=== PATIENT | male | born 1955 | race African-American/Black ===

== ENCOUNTER 2016-10-29 08:43 | Emergency (ER) | payer MEDICAID ==
[2016-10-29 08:47] VITALS: BP 154/79; BMI 28.8
[2016-10-29] MEDS ORDERED: DUONEB 0.5 MG/3 MG NEB ONE (09:10)
[2016-10-29] MEDS ORDERED: DUONEB 0.5 MG/3 MG ONE (09:13)
--- NOTE | 2016-10-29 09:14 | DR.GENAD ---
HPI - PCP Primary Care Physician: CHATO - Complaint/Symptoms Chief Complaint Doctors Comments: Patient reports that he has chest congestion, cough, chills, sweating at night and not feeling well. He denies alochol. cigarettes,vomiting or diarrhea. Symptoms for two th three days duration. Chief Complaint:: PT. C/O CHEST CONGESTION, CHILLS, SWEATS, SORE THROAT. PT. STATES "I THINK I GOT THE FLU." - Source History Provided: Patient - Mode of Arrival Mode of Arrival: Ambulatory - Timing Onset of Chief Complaint: 10/25/16 PMH - PMH Past Medical History: Yes Past Medical History: Hypertension Past Surgical History: No Surgical History: No History - Family History History of Family Medical Conditions: Yes Family Medical History: Diabetes Mellitus, Coronary Artery Disease, Hypertension - Social History Does patient currently use any type of tobacco product: No Have you used tobacco products in the last 12 months: No Type of Tobacco Use: None Does any household member use tobacco: No Alcohol Use: None Do you use any recreational Drugs:: Yes (MARIJUANA) Lives With: Alone Lives Where: Home - infectious screening In the last 2 months have you had wt loss of >10#?: NO Have you had fever, night sweats or hemotysis?: No Have you traveled outside the country in the last 6 months?: No Isolation: Standard ROS - Review of Systems Constitutional: No Symptoms Reported Eyes: No Symptoms Reported ENTM: No Symptoms Reported Respiratoy: Non-Productive Cough, Dry Cough Cardiovascular: No Symptoms Reported Gastrointestinal/Abdominal: No Symptoms Reported Genitourinary: No Symptoms Reported Neurological: No Symptoms Reported Musculoskeletal: No Symptoms Reported Integumentary: No Symptoms Reported Hematologic/Lymphatic: No Symptoms Reported Endocrine: No Symptoms Reported Psychiatric: No Symptoms Reported All Other Systems: Reviewed and Negative PE - Vital Signs Vitals: Temperature 98.7 F Pulse Rate 88 Respiratory Rate 17 Blood Pressure 154/79 O2 Sat by Pulse Oximetry 96 - General Limitations: No Limitations General Appearance: Alert, In No Apparent Distress - Head Head Exam: Normal Inspection, Atraumatic - Eyes Eye exam: Normal Appearance, PERRL, EOMI - ENT ENT Exam: Normal Exam, Normal Oropharynx External Ear Exam: Normal External Inspection TM/Canal Exam: Bilateral Normal Nose Exam: Normal Nose Exam Mouth Exam: Normal Inspection Throat Exam: Normal Inspection - Neck Neck Exam: Normal Inspection, Full ROM - Chest Chest Inspection: Normal Inspection - Respiratory Respiratory Exam: Normal Lung Sounds Bilat Respiratory Exam: Bilateral Clear to Auscultation - Cardiovascular Cardiovascular Exam: Regular Rate, Normal Rhythm - Abdominal Exam Abdominal Exam: Normal Inspection Abdominal Tenderness: negative: RUQ, RLQ, LUQ, LLQ, Epigastrium, Suprapubic, Diffuse, Mild, Moderate, Severe, Other - Extremities Extremities Exam: Normal Inspection, Full ROM - Back Back Exam: Normal Inspection, Full ROM - Neurologic Neurological Exam: Alert, Oriented X3, CN II-XII Intact - Skin Skin Exam: Warm, Dry, Intact Course - Reevaluation 1st: Improved ROR - Labs Reviewed Laboratory Results Reviewed?: Yes (low potassium, strep negative) Result Diagrams: 10/29/16 09:28 10/29/16 09: Laboratory: WBC 3.7 X10^3/uL (3.6-10.0) 10/29/16 09: RBC 5.14 X10^6/uL (4.7-6.0) 10/29/16 09: Hgb 15.4 g/dL (13.5-18.0) 10/29/16 09: Hct 46.5 % (42.0-54.0) 10/29/16 09: MCV 90.5 fL (80.0-100.0) 10/29/16 09: MCH 30.0 pg (27.0-34.0) 10/29/16 09: MCHC 33.2 g/dL (33.0-35.0) 10/29/16 09: RDW 15.2 % (11.6-16.5) 10/29/16 09: Plt Count 175 X10^3/uL (150.0-450.0) 10/29/16 09: Plt Count Comment Adequate (ADEQUATE) 10/29/16: MPV 8.2 fL (7.4-11.0) 10/29/16: Neut % 44.8 % (42.0-75.0) 10/29/16 09: Lymph % 33.0 % (21.0-51.0) 10/29/16 09: [place] % 21.4 % (0.0-13.0) H 10/29/16 09: Eos % 0.0 % (0.9-2.9) L 10/29/16 09:28 Baso % 0.8 % (0.2-1.0) 10/29/16 09: Neut # 1.6 x10^3/uL (2.2-4.8) L 10/29/16 09:28 Lymph # 1.2 X10^3/uL (1.3-2.9) L 10/29/16 09:28 [place] # 0.8 x10^3/uL (0.3-0.8) 10/29/16 09: Eos # 0.0 x10^3/uL (0.0-0.2) 10/29/16 09: Baso # 0.0 X10^3/uL (0.0-0.1) 10/29/16 09:28 Absolute Nucleated RBC 0.1 /100WBC 10/29/16 09: Total Counted 100 10/29/16 09:28 Neutrophils % (Manual) 41 % (39-76) 10/29/16 09:28 Lymphocytes % (Manual) 41 % (13-43) 10/29/16 09:28 Monocytes % (Manual) 18 % (4-9) H 10/29/16 09:28 Plt Morphology Comment Normal (NORMAL) 10/29/16 09: RBC Morphology Normal (NORMAL) 10/29/16 09:28 Sodium 143 mmol/L (136-145) 10/29/16 09:28 Corrected Sodium 144 mmol/L (136-145) 10/29/16 09:28 Potassium 3.2 mmol/L (3.5-5.1) L 10/29/16 09:28 Chloride 106 mmol/L (98-107) 10/29/16 09:28 Carbon Dioxide 23.9 mmol/L (21-32) 10/29/16 09:28 BUN 10 mg/dL (7-18) 10/29/16 09:28 Creatinine 1.20 mg/dL (0.70-1.30) 10/29/16 09:28 Est GFR (MDRD) Af Amer > 60 (>60) 10/29/16 09:28 Est GFR (MDRD) Non-Af > 60 (>60) 10/29/16 09:28 Glucose 124 mg/dL (65-99) H 10/29/16 09:28 Calcium 8.7 mg/dL (8.5-10.1) 10/29/16 09:28 Streptococcus Screen Negative (NEGATIVE) 10/29/16 09:24 - XRAY XRAY Interpreted by: Radiologist (Chest: no cardiopulmonary disease) - Diagnosis Discharge Problem: Hypokalemia Reactive airway disease Qualifiers: Asthma severity: mild intermittent Asthma complication type: uncomplicated Qualified Code(s): J45.20 - Mild intermittent asthma, uncomplicated - Discharge Plan Condition: Stable - Follow ups/Referrals Follow ups/Referrals: Karlee REIS [Primary Care Provider] - 3 days - Instructions
[2016-10-29 09:34] LABS: BASOPHILS % (AUTO) 0.8 % (0.2-1.0); HEMATOCRIT 46.5 % (42.0-54.0); HEMOGLOBIN 15.4 g/dL (13.5-18.0); LYMPHOCYTES # (AUTO) 1.2 X10^3/uL (1.3-2.9); MEAN CORPUSCULAR HGB CONC 33.2 g/dL (33.0-35.0); MEAN CORPUSCULAR VOLUME 90.5 fL (80.0-100.0); MEAN PLATELET VOLUME 8.2 fL (7.4-11.0); MONOCYTES # (AUTO) 0.8 x10^3/uL (0.3-0.8); MONOCYTES % (AUTO) 21.4 % (0.0-13.0); NEUTROPHILS # (AUTO) 1.6 x10^3/uL (2.2-4.8); NEUTROPHILS % (AUTO) 44.8 % (42.0-75.0); PLATELET COUNT 175 X10^3/uL (150.0-450.0); RED BLOOD COUNT 5.14 X10^6/uL (4.7-6.0); RED CELL DISTRIBUTION WIDTH 15.2 % (11.6-16.5); WHITE BLOOD COUNT 3.7 X10^3/uL (3.6-10.0)
[2016-10-29 09:39] LABS: BLOOD UREA NITROGEN 10 mg/dL (7-18); CALCIUM 8.7 mg/dL (8.5-10.1); CARBON DIOXIDE 23.9 mmol/L (21-32); CHLORIDE 106 mmol/L (98-107); COR NA(FOR HYPERGLY) 144 mmol/L (136-145); GLUCOSE 124 mg/dL (65-99); SODIUM 143 mmol/L (136-145); eGFR BLACK RACES > 60 (>60); eGFR NON BLACK RACES > 60 (>60)
--- NOTE | 2016-10-29 09:50 | RAD ---
HISTORY: Cough, wheeze, symptoms for 3 days. Study: Two-view chest. Comparison: No priors Findings: Trachea is midline. The heart size is normal. There is atherosclerotic calcification and uncoiling o f the aortic arch. There is mild hyperinflation of the lungs without infiltrate, CHF, pleural fluid or pneumothorax. Osseous structures are intact. IMPRESSION: Mild hyperinflation of the lungs without acute abnormality. Reported By:
[2016-10-29] MEDS ORDERED: K-DUR TAB 20 MEQ PO ONE ×2 (09:53→10:03)
[2016-10-29 10:01] LABS: PLATELET MORPHOLOGY COMMENT NORMAL (NORMAL)
== END 2016-10-29 10:12 | disposition home or self-care (01) ==
LOC: ER 08:49
DX: E87.6 Hypokalemia (principal); J45.20 Mild intermittent asthma, uncomplicated; J11.1 Influenza due to unidentified influenza virus with other respiratory manifestations
CPT/HCPCS: 36415; 71020; 80048; 85025; 87070; 87205; 87502; 87503; 87880; 94640; 99282; 99283; J7620

== ENCOUNTER 2017-07-11 10:52 | Emergency (ER) | payer MEDICAID ==
[2017-07-11 11:03] VITALS: BMI 30.2
[2017-07-11 11:19] VITALS: BP 161/74
--- NOTE | 2017-07-11 11:36 | DR.GENAD ---
HPI - PCP Primary Care Physician: CHATO Louise HPI Comment HPI Comment: HISTORY BELOW. - Complaint/Symptoms Chief Complaint Doctors Comments: NUMBNESS LT FAACE, LT ARM AND LT FACE AT HOME. BOTH ARMS NUMB YESTERDAY. SYMTOM HAVE RESOLVE. FELL AND INJURED NECK YESTERDAY. ALSO HAVE NEUROPATHY. NECK IS HURTING. Chief Complaint:: FEELING NUMB ON LEFT SIDE ARM AREA, FACE AND CHESRT. I FEEL BETTER NOW BUT IT WAS REAL BAD AT HOME. Self Treatment fo Chief Complaint: TOOK MY BLOOD PRESSURE MEDS - Nurses notes reviewed Nurses Notes Review: Yes - Source History Provided: Patient - Mode of Arrival Mode of Arrival: Ambulatory - Timing Onset of Chief Complaint: 07/10/17 Came on: Suddenly - Duration Duration: Since Onset Duration: Hours - Severity Severity: Moderate PMH - PMH Past Medical History: Yes Past Medical History: Hypertension Past Surgical History: No Surgical History: No History - Family History History of Family Medical Conditions: Yes Family Medical History: Diabetes Mellitus, Coronary Artery Disease, Hypertension - Social History Does any household member use tobacco: No Alcohol Use: None Do you use any recreational Drugs:: No Lives With: Alone Lives Where: Home - infectious screening In the last 2 months have you had wt loss of >10#?: NO Have you had fever, night sweats or hemotysis?: No Have you traveled outside the country in the last 6 months?: No Isolation: Standard ROS - Review of Systems Constitutional: No Symptoms Reported Eyes: No Symptoms Reported ENTM: No Symptoms Reported Respiratoy: No Symptoms Reported Cardiovascular: No Symptoms Reported Gastrointestinal/Abdominal: No Symptoms Reported Genitourinary: No Symptoms Reported Neurological: Numbness, Paresthesia, Weakness Musculoskeletal: No Symptoms Reported Integumentary: No Symptoms Reported Hematologic/Lymphatic: No Symptoms Reported All Other Systems: Reviewed and Negative PE - Vital Signs Vitals: Temperature 97.9 F Pulse Rate [Right Brachial] 78 Pulse Rate 97 Respiratory Rate 18 Blood Pressure [Right Arm] 161/74 Blood Pressure 195/96 O2 Sat by Pulse Oximetry 98 - General Limitations: No Limitations General Appearance: Alert - Head Head Exam: Normal Inspection - Eyes Eye exam: Normal Appearance - ENT ENT Exam: Normal External Ear Exam External Ear Exam: Normal External Inspection TM/Canal Exam: Bilateral Normal Nose Exam: Normal Nose Exam Mouth Exam: Normal Inspection Throat Exam: Normal Inspection - Neck Neck Exam: Trachea Midline - Chest Chest Inspection: Symmetric Chest Wall Rise - Respiratory Respiratory Exam: Normal Lung Sounds Bilat Respiratory Exam: Bilateral Clear to Auscultation - Cardiovascular Cardiovascular Exam: Regular Rate, Normal Rhythm, Normal Heart Sounds - Abdominal Exam Abdominal Exam: Normal Bowel Sounds, Soft. negative: Tenderness - Extremities Extremities Exam: Normal Inspection - Back Back Exam: Normal Inspection - Neurologic Neurological Exam: Alert, Oriented X3 - Psychiatric Psychiatric Exam: Anxious - Skin Skin Exam: Normal Color MDM - Additional Information Additional Information Obtained From: Family - Differential Diagnosis Differential Diagnosis: NUMBNESS/ PARESTHESIA, NEUROPATHY, CVA Course - Treatment Treatment: SEE ORDERS. - Education/Counseling Education/Counseling: Patient, Family, Education Educated On: Diagnosis, Needs for Follow Up ROR - Labs Reviewed Laboratory Results Reviewed?: Yes Result Diagrams: 07/11/17 11:40 07/11/17 11:40 Laboratory: WBC 5.9 X10^3/uL (3.6-10.0) 07/11/17 11:40 RBC 4.55 X10^6/uL (4.7-6.0) L 07/11/17 11:40 Hgb 14.1 g/dL (13.5-18.0) 07/11/17 11:40 Hct 41.9 % (42.0-54.0) L 07/11/17 11:40 MCV 92.0 fL (80.0-100.0) 07/11/17 11:40 MCH 31.1 pg (27.0-34.0) 07/11/17 11:40 MCHC 33.8 g/dL (33.0-35.0) 07/11/17 11:40 RDW 14.8 % (11.6-16.5) 07/11/17 11:40 Plt Count 222 X10^3/uL (150.0-450.0) 07/11/17 11:40 MPV 8.3 fL (7.4-11.0) 07/11/17 11:40 Neut % 55.5 % (42.0-75.0) 07/11/17 11:40 Lymph % 30.5 % (21.0-51.0) 07/11/17 11:40 [place] % 11.0 % (0.0-13.0) 07/11/17 11:40 Eos % 1.9 % (0.9-2.9) 07/11/17 11:40 Baso % 1.1 % (0.2-1.0) H 07/11/17 11:40 Neut # 3.3 x10^3/uL (2.2-4.8) 07/11/17 11:40 Lymph # 1.8 X10^3/uL (1.3-2.9) 07/11/17 11:40 [place] # 0.6 x10^3/uL (0.3-0.8) 07/11/17 11:40 Eos # 0.1 x10^3/uL (0.0-0.2) 07/11/17 11:40 Baso # 0.1 X10^3/uL (0.0-0.1) 07/11/17 11:40 Absolute Nucleated RBC 0.0 /100WBC 07/11/17 11:40 Sodium 143 mmol/L (136-145) 07/11/17 11:40 Corrected Sodium TNP 07/11/17 11:40 Potassium 4.1 mmol/L (3.5-5.1) 07/11/17 11:40 Chloride 107 mmol/L (98-107) 07/11/17 11:40 Carbon Dioxide 27.9 mmol/L (21-32) 07/11/17 11:40 BUN 11 mg/dL (7-18) 07/11/17 11:40 Creatinine 1.02 mg/dL (0.70-1.30) 07/11/17 11:40 Est GFR (MDRD) Af Amer > 60 (>60) 07/11/17 11:40 Est GFR (MDRD) Non-Af > 60 (>60) 07/11/17 11:40 Glucose 107 mg/dL (65-99) H 07/11/17 11:40 Calcium 8.9 mg/dL (8.5-10.1) 07/11/17 11:40 Corrected Calcium TNP 07/11/17 11:40 Total Bilirubin 0.30 mg/dL (0.2-1.0) 07/11/17 11:40 AST 17 Units/L (15-37) 07/11/17 11:40 ALT 28 Units/L (12-78) 07/11/17 11:40 Alkaline Phosphatase 70 Units/L (46-116) 07/11/17 11:40 Creatine Kinase 79 Units/L (39-308) 07/11/17 11:40 CK-MB (CK-2) 1.1 ng/mL (0-4.0) 07/11/17 11:40 CK/CKMB % Calc 1.4 % (<4) 07/11/17 11:40 Troponin I < 0.02 ng/mL (0-1.5) 07/11/17 11:40 Total Protein 7.0 g/dL (6.4-8.2) 07/11/17 11:40 Albumin 3.5 g/dL (3.4-5.0) 07/11/17 11:40 Globulin 3.5 g/dL (2.5-4.5) 07/11/17 11:40 Albumin/Globulin Ratio 1.0 Ratio (1.1-2.1) L 07/11/17 11:40 Specimen Type Clean catch urine 07/11/17 12:37 Urine Color Yellow (YELLOW) 07/11/17 12:37 Urine Appearance Hazy (CLEAR) 07/11/17 12:37 Urine pH 7.0 (5.0 - 8.0) 07/11/17 12:37 Ur Specific [place] 1.010 (1.000-1.030) 07/11/17 12:37 Urine Protein Negative (NEGATIVE) 07/11/17 12:37 Urine Glucose (UA) Negative (NEGATIVE) 07/11/17 12:37 Urine Ketones Negative (NEGATIVE) 07/11/17 12:37 Urine Occult Blood 1+ (NEGATIVE) 07/11/17 12:37 Urine Nitrite Negative (NEGATIVE) 07/11/17 12:37 Urine Bilirubin Negative (NEGATIVE) 07/11/17 12:37 Urine Urobilinogen Normal (NORMAL) 07/11/17 12:37 Ur Leukocyte Esterase 2+ (NEGATIVE) 07/11/17 12:37 Urine RBC 0-2 /HPF (NEGATIVE) 07/11/17 12:37 Urine WBC 5-6 /HPF (NEGATIVE) 07/11/17 12:37 Ur Squamous Epith Cells Negative /HPF (NEGATIVE) 07/11/17 12:37 Urine Bacteria Trace /HPF (NEGATIVE) 07/11/17 12:37 Ur Culture Indicated? No/not indicated 07/11/17 12:37 - XRAY XRAY Interpreted by: Radiologist XRAY Findings: REPORT DISCUSS WITH PATIENT AND HER DAUGHTER. - EKG Rhythm: NSR (EKG NOTED.) - Diagnosis Discharge Problem: Neuropathy, Paresthesia - Discharge Plan Disposition: 01 HOME, SELF-CARE Condition: Stable Prescriptions: Cyclobenzaprine HCl [FLEXERIL 10 MG *] 10 mg PO TID #20 tab Doxycycline Hyclate 100 mg PO BID #20 tablet. Methylprednisolone Dosepak 4Mg [MEDROL DOSEPAK (4 mg tab x 21)] 1 gilma PO ONCE # 1 gilma - Follow ups/Referrals Follow ups/Referrals: Karlee REIS [Primary Care Provider] - 1 day - Instructions Instructions: Paresthesia, Urinary Tract Infection, Adult, [id number], Headache and Arthritis Additional Instructions: RETURN TO ED IF WORSE.
[2017-07-11 11:57] LABS: BASOPHILS # (AUTO) 0.1 X10^3/uL (0.0-0.1); BASOPHILS % (AUTO) 1.1 % (0.2-1.0); EOSINOPHILS # (AUTO) 0.1 x10^3/uL (0.0-0.2); EOSINOPHILS % (AUTO) 1.9 % (0.9-2.9); HEMATOCRIT 41.9 % (42.0-54.0); HEMOGLOBIN 14.1 g/dL (13.5-18.0); LYMPHOCYTES # (AUTO) 1.8 X10^3/uL (1.3-2.9); LYMPHOCYTES % (AUTO) 30.5 % (21.0-51.0); MEAN CORPUSCULAR HEMOGLOBIN 31.1 pg (27.0-34.0); MEAN CORPUSCULAR HGB CONC 33.8 g/dL (33.0-35.0); MEAN PLATELET VOLUME 8.3 fL (7.4-11.0); MONOCYTES # (AUTO) 0.6 x10^3/uL (0.3-0.8); NEUTROPHILS # (AUTO) 3.3 x10^3/uL (2.2-4.8); NEUTROPHILS % (AUTO) 55.5 % (42.0-75.0); PLATELET COUNT 222 X10^3/uL (150.0-450.0); RED BLOOD COUNT 4.55 X10^6/uL (4.7-6.0); RED CELL DISTRIBUTION WIDTH 14.8 % (11.6-16.5); WHITE BLOOD COUNT 5.9 X10^3/uL (3.6-10.0)
[2017-07-11 12:18] LABS: BLOOD UREA NITROGEN 11 mg/dL (7-18); CALCIUM 8.9 mg/dL (8.5-10.1); CARBON DIOXIDE 27.9 mmol/L (21-32); CHLORIDE 107 mmol/L (98-107); CREATININE 1.02 mg/dL (0.70-1.30); SODIUM 143 mmol/L (136-145); TROPONIN I < 0.02 ng/mL (0-1.5); eGFR BLACK RACES > 60 (>60); eGFR NON BLACK RACES > 60 (>60)
[2017-07-11 12:20] LABS: ALANINE AMINOTRANSFERASE 28 Units/L (12-78); ALBUMIN 3.5 g/dL (3.4-5.0); ALKALINE PHOSPHATASE 70 Units/L (46-116); ASPARTATE AMINO TRANSFERASE 17 Units/L (15-37); CKMB % 1.4 % (<4); CREATINE KINASE 79 Units/L (39-308); CREATINE KINASE MB 1.1 ng/mL (0-4.0)
[2017-07-11 12:43] LABS: BILIRUBIN,URINE NEGATIVE (NEGATIVE); BLOOD/HEMOGLOBIN,URINE 1+ (NEGATIVE); GLUCOSE, URINE NEGATIVE (NEGATIVE); KETONES,URINE NEGATIVE (NEGATIVE); LEUKOCYTE ESTERASE ,URINE 2+ (NEGATIVE); NITRITES,URINE NEGATIVE (NEGATIVE); PROTEIN,URINE NEGATIVE (NEGATIVE); UROBILINOGEN,URINE NORMAL (NORMAL)
[2017-07-11 12:47] LABS: APPEARANCE,URINE HAZY (CLEAR); COLOR,URINE YELLOW (YELLOW)
[2017-07-11 12:48] LABS: BACTERIA,URINE TRACE /HPF (NEGATIVE); RBC,URINE 0-2 /HPF (NEGATIVE); SQUAMOUS EPITHELIAL CELL,UR NEGATIVE /HPF (NEGATIVE)
--- NOTE | 2017-07-11 13:32 | CT ---
HISTORY: Left-sided numbness Study: CT head without contrast Comparison: October 31, 2015 Technique: Multiple axial, coronal, and sagittal CT images of the head were reviewed without contrast . AEC was utilized. Findings: There is no mass, hemorrhage, midline shift, or abnormal extra-axial fluid collection. The ventricles are symmetrical in size and configuration. There are no findings to suggest an acute or subacute isc hemic event. Extracranial structures are unremarkable. IMPRESSION: Negative CT head without contrast. Reported By:
[2017-07-11] MEDS ORDERED: TORADOL 60 MG VIAL IM ONE (14:20)
[2017-07-11] MEDS ORDERED: NORFLEX INJ IM ONE (14:20)
[2017-07-11] MEDS ORDERED: NS 1000 ML 1,000 ML ONE (14:22)
[2017-07-11] MEDS ORDERED: TORADOL 60 MG VIAL ONE (14:28)
[2017-07-11] MEDS ORDERED: NORFLEX INJ ONE (14:28)
--- NOTE | 2017-07-11 16:11 | RAD ---
Examination: Portable AP chest History: Numb on left side Comparison reference 10/29/2016. Findings: Continued normal heart size with clear lungs and pleural spaces. Impression: No interval change or acute chest abnormality demonstrated. Reported By:
== END 2017-07-11 14:41 | disposition home or self-care (01) ==
LOC: ER 11:07
DX: G62.9 Polyneuropathy, unspecified (principal); R20.2 Paresthesia of skin
CPT/HCPCS: 36415; 70450; 71010; 80053; 81001; 82550; 82553; 84484; 85025; 93005; 93010; 96372; 99283; 99285; J1885; J2360

== ENCOUNTER 2020-05-02 22:52 | Inpatient (IN) ==
[2020-05-02 23:13] VITALS: BMI 30.9
--- NOTE | 2020-05-02 23:30 | DR.AMS ---
HPI Time Seen Time Seen by Provider: 05/02/20 23:27 PCP Primary Care Physician: YVETTE HPI Comment HPI Comment: PATIENT IS 65YR OLD FEMALE IN ER WITH AMS. PATIENT WAS AT [id number] [facility] STANDING IN LINE AND FELL. SAID TO HAVE BEING UNRESPONSIVE BRIEFLY. BECAME ALERT BUT NOT COMPREHENDING OR FOLLOWING DIRECTION IN ER. HISTORY HTN BUT BP IS NORMAL. BG 144. PATIENT IS NOT RUNNING FEVER. HE IS UNABLE TO SWALLOW. SISTER SAID PATIENT HAVE NOT SEEN A DOCTOR FOR SEVERAL MONTHS. HE APPEAR TO BA MOVING ALL LIMBS BUT WILL NOT FOLLOW INSTRUCTIONS FOR NEUROLOGIC EXAM. Complaint Cheif Complaint Doctors Comments: HERE VIA EMS WITH AMS, SUDDEN ONSET. Chief Complaint:: PT IN ED VIA STRETCHER PER [facility]. PER EMS WAS CALLED TO [facility] FOR PT STANDING IN LINE THEN FELL TO FLOOR THEN WENT UNRESPONSIVE. PT AWAKE AND ALERT BUT NOT RESPONDING WELL ON EMS ARRIVAL. BLOOD SUGAR PER EMS 144. COVID-19 Coronavirus risk:travel/contact w/high risk person: No Has patient experienced Coronavirus symptoms: No Reviewed Nurses Notes Reviewed: Yes Source History Provided: EMS Mode of Arrival Mode of Arrival: Stretcher Timing Onset of Chief Complaint: 05/02/20 Came On: Suddenly Symptoms: Unchanged Symptom Onset: Known Onset of Symptoms Start Date: 05/02/20 Onset of Symptoms Start Time: 22:34 Duration Duration: Constant Duration: Minutes Quality Quality: Change in Behavior and Confusion Severity Severity: Moderate Context Recent: None and Cough; denies Fever History Of: Diabetes Associated Signs and Symptoms Associated Signs and Symptoms: Confusion and Other (APHASIA, NOT COMPREHENDING.) PMH PMH Past Medical History: Yes Past Medical History: Diabetes, Dyslipidemia, Hypertension and Seizures Past Surgical History: Yes Surgical History: No History Family History History of Family Medical Conditions: Yes Family Medical History: Diabetes Mellitus, Coronary Artery Disease and Hypertension Social History Does patient currently use any type of tobacco product: No Have you used tobacco products in the last 12 months: No Type of Tobacco Use: None Does any household member use tobacco: No Alcohol Use: None Do you use any recreational Drugs:: Yes (MARIJUANA) Lives With: Family Lives Where: Home Travel Risk Coronavirus risk:travel/contact w/high risk person: No Has patient experienced Coronavirus symptoms: No Infectious screening In the last 2 months have you had wt loss of >10#?: NO Have you had fever, night sweats or hemotysis?: No Have you traveled outside the country in the last 6 months?: No Isolation: Standard ROS Review of Systems Constitutional: See HPI and Other (CANNOT EVELUATE.); negative Diaphoresis and Fever Eyes: See HPI and Other (CANNOT EVELUATE) ENTM: See HPI and Nose Congestion Respiratoy: No Symptoms Reported, See HPI and Moist Cough; negative Short of Breath and Wheezing Cardiovascular: No Symptoms Reported, See HPI and Skin Mottling (UNABLE TO EVALUATE.) Gastrointestinal/Abdominal: See HPI; negative Diarrhea and Vomiting Genitourinary: See HPI and Other (PATIENT DID NOT FOLLOW DIRECTION TO URINAFE IN URINER.) Neurological: See HPI and Other (UNABLE TO EVALUATE.) Musculoskeletal: See HPI and Ankle (UNABLE TO EVALUATE.) Integumentary: See HPI; negative Change in Color, Rash and Juandice Hematologic/Lymphatic: See HPI; negative Easy Bruising and Swollen Glands Endocrine: See HPI and Other (UNABLE TO EVALUATE.) Psychiatric: See HPI and Other (UNABLE TO EVALUATE.) PE Vitals Vital Signs: Temp Pulse Resp BP BP Pulse Ox 05/03/20 01:00 71 17 134/72 100 05/02/20 22:54 98.2 F 91 H 20 120/60 97 02/15/20 12:36 156/71 General Limitations: Altered Mental Status General Appearance: Alert (BUT NOT COMPLEHENDING.) and In No Apparent Distress Head Head Exam: Normal Inspection and Atraumatic Head Exam Physical: Other (NONE NOTED.) Eyes Eye exam: negative Scleral Icterus and Conjunctival Injection Pupils: Regular, Round: Bilateral and Reactive: Bilateral ENT ENT Exam: Normal Exam, Normal Oropharynx, Normal External Ear Exam and TM's Normal Bilaterally External Ear Exam: negative Auricular Trauma TM/Canal Exam: Bilateral: Normal Nose Exam: Normal Nose Exam Mouth Exam: Drooling; negative Lip Swelling and Tongue Swelling Throat Exam: negative Tonsillar Erythema, Tonsillomegaly and Tonsillar Exudate Neck Neck Exam: Trachea Midline; negative Tenderness and Lymphadenopathy Chest Chest Inspection: Normal Inspection and Symmetric Chest Wall Rise; negative Tenderness Respiratory Respiratory Exam: Normal Lung Sounds Bilat Respiratory Exam: Bilateral: Rhonchi Cardiovascular Cardiovascular Exam: Regular Rate, Normal Rhythm and Normal Heart Sounds; negative Systolic Murmur and Diastolic Murmur Abdominal Exam Abdominal Exam: Normal Bowel Sounds and Soft Extremities Extremities Exam: Other (PATIENT MOVING EXTREMITIES BUT WILL NOT SQUEEZE MY HANDS.) Back Back Exam: Other (UNABLE TO EVALUATE.) Neurological Neurological Exam: Alert Speech: Other (PATIENT NOT SPEECHING.); negative Fluid Speech Cranial Nerve Exam: Gag reflex (XI): Normal Psychological Psychiatric Exam: Other (UNABLE TO EVALUATE.) Expanded Psychiatric Exam: Other (UNABLE TO EVALUATE.) Skin Skin Exam: Warm, Dry, Intact and Normal Color; negative Rash MDM Additional Information Obtained Additional Information Obtained From: Family (SISTER IN ER WITH PATIENT.) Differential Diagnosis Metabolic: Dehydration, Hypercalcemia, Hypernatremia, Hypoglycemia, Hyponatremia and Post-ictal Structural: CVA and Mass Lesion COURSE Treatment Treatment: SEE ORDERS. POTASSIUM 20MEQ IN 1L ND AT 500CC/HR. Consultation Consultation Comments: DISCUSSED PATIENT WITH DR. BARRIOS. SHE WILL ADMIT PATIENT. Education/Counseling Education/Counseling: Family Educated On: Diagnosis ROR Labs Reviewed Laboratory Results Reviewed?: Yes Result Diagrams: 05/02/20 23:40 05/02/20 23:40 Laboratory: WBC 9.4 X10^3/uL (3.6-10.0) 05/02/20 23:40 RBC 4.59 X10^6/uL (4.7-6.0) L 05/02/20 23:40 Hgb 14.5 g/dL (13.5-18.0) 05/02/20 23:40 Hct 43.6 % (42.0-54.0) 05/02/20 23:40 MCV 94.8 fL (80.0-100.0) 05/02/20 23:40 MCH 31.6 pg (27.0-34.0) 05/02/20 23:40 MCHC 33.3 g/dL (33.0-35.0) 05/02/20 23:40 RDW 14.9 % (11.6-16.5) 05/02/20 23:40 Plt Count 184 X10^3/uL (150.0-450.0) 05/02/20 23:40 MPV 8.0 fL (7.4-11.0) 05/02/20 23:40 Neut % (Auto) 88.5 % (42.0-75.0) H 05/02/20 23:40 Lymph % (Auto) 7.4 % (21.0-51.0) L 05/02/20 23:40 [place] % (Auto) 3.6 % (0.0-13.0) 05/02/20 23:40 Eos % (Auto) 0.1 % (0.9-2.9) L 05/02/20 23:40 Baso % (Auto) 0.4 % (0.2-1.0) 05/02/20 23:40 Neut # (Auto) 8.3 x10^3/uL (2.2-4.8) H 05/02/20 23:40 Lymph # (Auto) 0.7 X10^3/uL (1.3-2.9) L 05/02/20 23:40 [place]lan # (Auto) 0.3 x10^3/uL (0.3-0.8) 05/02/20 23:40 Eos # (Auto) 0.0 x10^3/uL (0.0-0.2) 05/02/20 23:40 Baso # (Auto) 0.0 X10^3/uL (0.0-0.1) 05/02/20 23:40 Absolute Nucleated RBC 0.0 /100WBC 05/02/20 23:40 Sodium 142 mmol/L (136-145) 05/02/20 23:40 Corrected Sodium 143 mmol/L (136-145) 05/02/20 23:40 Potassium 3.3 mmol/L (3.5-5.1) L 05/02/20 23:40 Chloride 103 mmol/L (98-107) 05/02/20 23:40 Carbon Dioxide 27.8 mmol/L (21-32) 05/02/20 23:40 BUN 16 mg/dL (7-18) 05/02/20 23:40 Creatinine 1.88 mg/dL (0.70-1.30) H 05/02/20 23:40 Est GFR (MDRD) Af Amer 47 (>60) L 05/02/20 23:40 Est GFR (MDRD) Non-Af 39 (>60) L 05/02/20 23:40 Glucose 162 mg/dL (65-99) H 05/02/20 23:40 Lactic Acid 2.7 mmol/L (0.4-2.0) H 05/02/20 23:40 Calcium 9.4 mg/dL (8.5-10.1) 05/02/20 23:40 Corrected Calcium TNP 05/02/20 23:40 Total Bilirubin 0.40 mg/dL (0.2-1.0) 05/02/20 23:40 AST 15 Units/L (15-37) 05/02/20 23:40 ALT 19 Units/L (12-78) 05/02/20 23:40 Alkaline Phosphatase 75 Units/L (46-116) 05/02/20 23:40 Creatine Kinase 55 Units/L (39-308) 05/02/20 23:40 CK-MB (CK-2) < 1.0 ng/mL (0-4.0) 05/02/20 23:40 CK/CKMB % Calc 1.8 % (<4) 05/02/20 23:40 Troponin I < 0.02 ng/mL (0-1.5) 05/02/20 23:40 Total Protein 8.0 g/dL (6.4-8.2) 05/02/20 23:40 Albumin 3.6 g/dL (3.4-5.0) 05/02/20 23:40 Globulin 4.4 g/dL (2.5-4.5) 05/02/20 23:40 Albumin/Globulin Ratio 0.8 Ratio (1.1-2.1) L 05/02/20 23:40 Specimen Type Catherized urine 05/03/20 01:30 Urine Color Yellow (YELLOW) 05/03/20 01:30 Urine Appearance Clear (CLEAR) 05/03/20 01:30 Urine pH 5.0 (5.0 - 8.0) 05/03/20 01:30 Ur Specific [place] 1.020 (1.000-1.030) 05/03/20 01:30 Urine Protein 2+ (NEGATIVE) 05/03/20 01:30 Urine Glucose (UA) Negative (NEGATIVE) 05/03/20 01:30 Urine Ketones Negative (NEGATIVE) 05/03/20 01:30 Urine Occult Blood 1+ (NEGATIVE) 05/03/20 01:30 Urine Nitrite Negative (NEGATIVE) 05/03/20 01:30 Urine Bilirubin Negative (NEGATIVE) 05/03/20 01:30 Urine Urobilinogen Normal (NORMAL) 05/03/20 01:30 Ur Leukocyte Esterase Negative (NEGATIVE) 05/03/20 01:30 Urine RBC 0-2 /HPF (0-3) 05/03/20 01:30 Urine WBC 0-2 /HPF (0-5) 05/03/20 01:30 Ur Squamous Epith Cells Rare /HPF (NEGATIVE) 05/03/20 01:30 Urine Bacteria Negative /HPF (NEGATIVE) 05/03/20 01:30 Hyaline Casts Many /LPF (NEGATIVE) 05/03/20 01:30 Urine Mucus Few /HPF (NEGATIVE) 05/03/20 01:30 Ur Culture Indicated? No/not indicated 05/03/20 01:30 Urine Opiates Screen Negative (NEG=<300) 05/03/20 01:30 Urine Methadone Screen Negative (NEG=<300) 05/03/20 01:30 Ur Barbiturates Screen Negative (NEG=<200) 05/03/20 01:30 Ur Phencyclidine Scrn Negative (NEG=<25) 05/03/20 01:30 Ur Amphetamines Screen Negative (NEG=<1000) 05/03/20 01:30 U Benzodiazepines Scrn Negative (NEG=<200) 05/03/20 01:30 Urine Cocaine Screen Negative (NEG=<300) 05/03/20 01:30 U Marijuana (THC) Screen Positive (NEG=<50) A 05/03/20 01:30 SARS-CoV-2 (PCR) Negative (NEGATIVE) 05/03/20 03:00 XRAY XRAY Interpreted by: Radiologist (REPORTS NOTED AND DISCUSSED WITH PATIENTS SISTER.) and Self EKG Rate: 68 [place]: Normal Rhythm: NSR Block: None Hypertrophy: None ST: Lat (ST-T CHANGES.) Opioid Opioid Risk Tool Age (Td box if 16-45): No History of Preadolescent Sexual Abuse: No Total: 0 Total Score Risk Category: Low Risk Copyright: [employer] COOPER predicting aberrant behaviors Diagnosis Discharge Problem: Hypokalemia, Aphagia, Acute CVA (cerebrovascular accident) AMS (altered mental status) Qualifiers: Altered mental status type: unspecified Qualified Code(s): R41.82 - Altered mental status, unspecified Dysphagia Qualifiers: Dysphagia type: unspecified Qualified Code(s): R13.10 - Dysphagia, unspecified Instructions Forms: Precautions for COVID19 Patient Portal Social Distancing
[2020-05-02 23:52] LABS: BASOPHILS % (AUTO) 0.4 % (0.2-1.0); EOSINOPHILS % (AUTO) 0.1 % (0.9-2.9); HEMATOCRIT 43.6 % (42.0-54.0); HEMOGLOBIN 14.5 g/dL (13.5-18.0); LYMPHOCYTES # (AUTO) 0.7 X10^3/uL (1.3-2.9); LYMPHOCYTES % (AUTO) 7.4 % (21.0-51.0); MEAN CORPUSCULAR HEMOGLOBIN 31.6 pg (27.0-34.0); MEAN CORPUSCULAR HGB CONC 33.3 g/dL (33.0-35.0); MEAN CORPUSCULAR VOLUME 94.8 fL (80.0-100.0); MONOCYTES # (AUTO) 0.3 x10^3/uL (0.3-0.8); MONOCYTES % (AUTO) 3.6 % (0.0-13.0); NEUTROPHILS # (AUTO) 8.3 x10^3/uL (2.2-4.8); NEUTROPHILS % (AUTO) 88.5 % (42.0-75.0); PLATELET COUNT 184 X10^3/uL (150.0-450.0); RED BLOOD COUNT 4.59 X10^6/uL (4.7-6.0); RED CELL DISTRIBUTION WIDTH 14.9 % (11.6-16.5); WHITE BLOOD COUNT 9.4 X10^3/uL (3.6-10.0)
[2020-05-03 00:02] LABS: LACTIC ACID 2.7 mmol/L (0.4-2.0)
[2020-05-03 00:03] LABS: BLOOD UREA NITROGEN 16 mg/dL (7-18); CALCIUM 9.4 mg/dL (8.5-10.1); CARBON DIOXIDE 27.8 mmol/L (21-32); CHLORIDE 103 mmol/L (98-107); COR NA(FOR HYPERGLY) 143 mmol/L (136-145); CREATININE 1.88 mg/dL (0.70-1.30); SODIUM 142 mmol/L (136-145); TROPONIN I < 0.02 ng/mL (0-1.5); eGFR NON BLACK RACES 39 (>60)
[2020-05-03 00:09] LABS: ALANINE AMINOTRANSFERASE 19 Units/L (12-78); ALBUMIN 3.6 g/dL (3.4-5.0); ALKALINE PHOSPHATASE 75 Units/L (46-116); ASPARTATE AMINO TRANSFERASE 15 Units/L (15-37); CKMB % 1.8 % (<4); CREATINE KINASE 55 Units/L (39-308); CREATINE KINASE MB < 1.0 ng/mL (0-4.0)
--- NOTE | 2020-05-03 00:35 | CT ---
HISTORYHistory: PT IN ED VIA STRETCHER PER [facility] EMS. PER EMS WAS CALLED TO [facility] FOR PT STANDING IN LINE THEN FELL TO FLOOR THEN WENT UNRESPONSIVE. PT AWAKE AND ALERT BUT NOT RESPONDING WELL ON EMS ARRIVAL. BLOOD SUGAR PER EMS 144. DIABETES, HTNExam :BRAIN W/O CONTechnique: Thin section axial ct images of the brain were obtained from the foramen magnum to the vertex without contrast. Sagittal and coronal reconstructions were also performed.Comparison: 07/11/2017Findings:The ventricles are within normal limits in size. No midline shift, mass effect or extra-axial fluid collections. No evidence of acute hemorrhage or acute macroinfarction. Mild cortical atrophy compatible with patient's age. Decreased attenuation in the periventricular and subcortical white matter consistent with microvascular ischemic white matter changes.The visualized paranasal sinuses and mastoids are unremarkable. The calvarium is intact.Impression:Mild cortical atrophy with microvascular ischemic white matter changes.No acute intracranial pathology.Electronically signed by: Nito Chris (May 03, 2020 00:35:17)
[2020-05-03] MEDS ORDERED: NS + KCL 20 MEQ/L 1,000 ML IV ONE (00:51)
--- NOTE | 2020-05-03 00:54 | RAD ---
HISTORYPT IN ED VIA STRETCHER PER [facility] EMS. PER EMS WAS CALLED TO [facility] FOR PT STANDING IN LINE THEN FELL TO FLOOR THEN WENT UNRESPONSIVE. PT AWAKE AND ALERT BUT NOT RESPONDING WELL ON EMS ARRIVAL. BLOOD SUGAR PER EMS 144.STUDYCHEST, 1 [id number] trachea is midline. The cardiac silhouette is slightly enlarged.. The lungs are clear without focal infiltrate or effusion. The bony thorax is unremarkable.IMPRESSIONMild cardiomegaly.No active cardiopulmonary diseaseElectronically signed by: Nito Chris (May 03, 2020 00:54:18)
[2020-05-03] MEDS ORDERED: NS + KCL 20 MEQ/L 1,000 ML IV SCH (01:00)
[2020-05-03 01:42] LABS: BILIRUBIN,URINE NEGATIVE (NEGATIVE); BLOOD/HEMOGLOBIN,URINE 1+ (NEGATIVE); GLUCOSE, URINE NEGATIVE (NEGATIVE); KETONES,URINE NEGATIVE (NEGATIVE); LEUKOCYTE ESTERASE ,URINE NEGATIVE (NEGATIVE); NITRITES,URINE NEGATIVE (NEGATIVE); PROTEIN,URINE 2+ (NEGATIVE); UROBILINOGEN,URINE NORMAL (NORMAL)
[2020-05-03 01:51] LABS: APPEARANCE,URINE CLEAR (CLEAR); COLOR,URINE YELLOW (YELLOW)
[2020-05-03 01:52] LABS: BACTERIA,URINE NEGATIVE /HPF (NEGATIVE); HYALINE CASTS, URINE MANY /LPF (NEGATIVE); MUCUS,URINE FEW /HPF (NEGATIVE); RBC,URINE 0-2 /HPF (0-3); SQUAMOUS EPITHELIAL CELL,UR RARE /HPF (NEGATIVE)
--- NOTE | 2020-05-03 04:40 | DR.AMS ---
HPI <SALOMERAH CONSUELO - Last Filed: 05/07/20 19:13> Time Seen Time Seen by Provider: 05/02/20 23:27 PCP Primary Care Physician: YVETTE HPI Comment HPI Comment: PATIENT IS 65YR OLD MALE IS IN ER VIA EMS AFTER HE FELL IN CHECK OUT LINE AT [facility] AND WAS BRIEFLY UNRESPONSIVE. HE IS A DIABETIC. GLUSE 144 PER EMS. BP IS NORMAL IN ER. PATIENT HAVE SEIZURE DISORDER AND MENTAL STATUS HAVE NOT CHANGE. Complaint Cheif Complaint Doctors Comments: PATIENT STANDING IN CHECK OUT LINE AT THE STORE FELL AND WAS BRIEFLY UNRESPONSIVE. Chief Complaint:: PT IN ED VIA STRETCHER PER [facility]. PER EMS WAS CALLED TO [facility] [place] FOR PT STANDING IN LINE THEN FELL TO FLOOR THEN WENT UNRESPONSIVE. PT AWAKE AND ALERT BUT NOT RESPONDING WELL ON EMS ARRIVAL. BLOOD SUGAR PER EMS 144. COVID-19 Coronavirus risk:travel/contact w/high risk person: No Has patient experienced Coronavirus symptoms: No Reviewed Nurses Notes Reviewed: Yes Source History Provided: EMS Mode of Arrival Mode of Arrival: Stretcher Timing Onset of Chief Complaint: 05/02/20 Came On: Suddenly Symptoms: Improving Symptom Onset: Known Onset of Symptoms Start Date: 05/02/20 Onset of Symptoms Start Time: 22:34 Duration Duration: Constant Duration: Minutes Quality Quality: Decreased Alertness and Change in Behavior (APHASTA.) Severity Severity: Severe Context Recent: None Associated Signs and Symptoms Associated Signs and Symptoms: Change in Behavior, Change in Memory, Seizure and Other (DM.) PMH <SALOMERuthannFelix CORDERO - Last Filed: 05/07/20 19:13> PMH Past Medical History: Yes Past Medical History: Diabetes, Dyslipidemia, Hypertension and Seizures Past Surgical History: Yes Surgical History: No History Family History History of Family Medical Conditions: Yes Family Medical History: Diabetes Mellitus, Coronary Artery Disease and Hypertension Social History Does patient currently use any type of tobacco product: No Have you used tobacco products in the last 12 months: No Type of Tobacco Use: None Does any household member use tobacco: No Alcohol Use: None Do you use any recreational Drugs:: Yes (MARIJUANA) Lives With: Family Lives Where: Home Travel Risk Coronavirus risk:travel/contact w/high risk person: No Has patient experienced Coronavirus symptoms: No Infectious screening In the last 2 months have you had wt loss of >10#?: NO Have you had fever, night sweats or hemotysis?: No Have you traveled outside the country in the last 6 months?: No Isolation: Standard ROS <SALOMERAH CONSUELO - Last Filed: 05/07/20 19:13> Review of Systems Constitutional: See HPI and Other (AMS. PATIENT NOT TALKING. NOT CLEAR IF HE COMPREHENDS.); negative Fever Eyes: See HPI and Other (AMS.) ENTM: See HPI and Ear Foreign Body (AMS.) Respiratoy: See HPI; negative Moist Cough, Short of Breath and Wheezing Cardiovascular: See HPI and Syncope (SYNCOPAL EPISODE); negative Edema, Palpitations and Cyanosis Gastrointestinal/Abdominal: See HPI and Other (AMS); negative Diarrhea, Nausea and Vomiting Genitourinary: No Symptoms Reported and See HPI Neurological: See HPI and Other (APHASIA.) Musculoskeletal: See HPI and Other (AMS, APHASIA.) Integumentary: See HPI and Other (AMS.); negative Change in Color, Rash and Juandice Hematologic/Lymphatic: See HPI and Other (AMS) Endocrine: See HPI and Other (AMS.); negative Flushing Psychiatric: See HPI and Other (APHASIA, AMS.) All Other Systems: Reviewed and Negative Unable to Obtain Due To: Altered mental status PE <SALOMERAH CONSUELO - Last Filed: 05/07/20 19:13> Vitals Vital Signs: Temp Pulse Resp BP BP Pulse Ox 05/03/20 01:00 71 17 134/72 100 05/02/20 22:54 98.2 F 91 H 20 120/60 97 02/15/20 12:36 156/71 General Limitations: Altered Mental Status and Other (APHASIA.) General Appearance: Other (AMS AND APHASIA.) Head Head Exam: Normal Inspection, Atraumatic and Normocephalic Head Exam Physical: Other (NONE NOTED.) Eyes Eye exam: PERRL (PUPILS EQUAL AND REACTIVE.); negative Scleral Icterus and Conjunctival Injection Pupils: Regular, Round: Bilateral and Reactive: Bilateral ENT ENT Exam: Normal Oropharynx, Normal External Ear Exam and TM's Normal Bilaterally External Ear Exam: Normal External Inspection TM/Canal Exam: Bilateral: Normal Nose Exam: negative Nasal Deviation, Septal Hematoma and Abrasion Mouth Exam: negative Lip Swelling and Tongue Swelling Throat Exam: negative Tonsillar Erythema, Tonsillomegaly and Tonsillar Exudate Neck Neck Exam: Full ROM, Trachea Midline and Tenderness; negative Lymphadenopathy Chest Chest Inspection: Normal Inspection and Symmetric Chest Wall Rise Respiratory Respiratory Exam: Normal Lung Sounds Bilat; negative Accessory Muscle Use and Respiratory Distress Respiratory Exam: Bilateral: Rhonchi and Lower: Rhonchi Cardiovascular Cardiovascular Exam: Regular Rate, Normal Rhythm and Normal Heart Sounds; negative Systolic Murmur and Diastolic Murmur Abdominal Exam Abdominal Exam: Normal Bowel Sounds and Soft Extremities Extremities Exam: Normal Inspection and Normal Capillary Refill; negative Edema and Calf Tenderness Back Back Exam: Normal Inspection Neurological Neurological Exam: Alert and CN II-XII Intact; negative Oriented X3 Patient Oriented To: negative Person, Place and Time Speech: Total Aphasia Cranial Nerve Exam: Gag reflex (XI): Normal Upper Motor Neuron Exam: Babinski Sign: Normal Skin Skin Exam: Warm, Dry, Intact and Normal Color <Apolonia Lucas - Last Filed: 05/03/20 14:05> Vitals Vital Signs: Temp Pulse Resp BP BP Pulse Ox 05/03/20 01:00 71 17 134/72 100 05/02/20 22:54 98.2 F 91 H 20 120/60 97 02/15/20 12:36 156/71 MDM <KILEY CORDERO - Last Filed: 05/07/20 19:13> Additional Information Obtained Additional Information Obtained From: Old Records and Family Differential Diagnosis Metabolic: Dehydration, DKA, Hypercalcemia, Hypernatremia, Hypoglycemia, Hyponatremia, Hypoxemia and Post-ictal Structural: CVA and Mass Lesion Infectious: Sepsis and UTI COURSE <KILEY CORDERO - Last Filed: 05/07/20 19:13> Treatment Treatment: SEE ORDWES. Consultation Consultation Comments: DISCUSSED PATIENT WITH DR. LUCAS. SHE WILL ADMIT PATIENT. Education/Counseling Education/Counseling: Family Educated On: Diagnosis ROR <KILEY CORDERO - Last Filed: 05/07/20 19:13> Labs Reviewed Laboratory Results Reviewed?: Yes Result Diagrams: 05/03/20 11:30 05/03/20 11:30 Laboratory: WBC 9.4 X10^3/uL (3.6-10.0) 05/02/20 23:40 RBC 4.59 X10^6/uL (4.7-6.0) L 05/02/20 23:40 Hgb 14.5 g/dL (13.5-18.0) 05/02/20 23:40 Hct 43.6 % (42.0-54.0) 05/02/20 23:40 MCV 94.8 fL (80.0-100.0) 05/02/20 23:40 MCH 31.6 pg (27.0-34.0) 05/02/20 23:40 MCHC 33.3 g/dL (33.0-35.0) 05/02/20 23:40 RDW 14.9 % (11.6-16.5) 05/02/20 23:40 Plt Count 184 X10^3/uL (150.0-450.0) 05/02/20 23:40 MPV 8.0 fL (7.4-11.0) 05/02/20 23:40 Neut % (Auto) 88.5 % (42.0-75.0) H 05/02/20 23:40 Lymph % (Auto) 7.4 % (21.0-51.0) L 05/02/20 23:40 [place] % (Auto) 3.6 % (0.0-13.0) 05/02/20 23:40 Eos % (Auto) 0.1 % (0.9-2.9) L 05/02/20 23:40 Baso % (Auto) 0.4 % (0.2-1.0) 05/02/20 23:40 Neut # (Auto) 8.3 x10^3/uL (2.2-4.8) H 05/02/20 23:40 Lymph # (Auto) 0.7 X10^3/uL (1.3-2.9) L 05/02/20 23:40 [place] # (Auto) 0.3 x10^3/uL (0.3-0.8) 05/02/20 23:40 Eos # (Auto) 0.0 x10^3/uL (0.0-0.2) 05/02/20 23:40 Baso # (Auto) 0.0 X10^3/uL (0.0-0.1) 05/02/20 23:40 Absolute Nucleated RBC 0.0 /100WBC 05/02/20 23:40 Sodium 142 mmol/L (136-145) 05/02/20 23:40 Corrected Sodium 143 mmol/L (136-145) 05/02/20 23:40 Potassium 3.3 mmol/L (3.5-5.1) L 05/02/20 23:40 Chloride 103 mmol/L (98-107) 05/02/20 23:40 Carbon Dioxide 27.8 mmol/L (21-32) 05/02/20 23:40 BUN 16 mg/dL (7-18) 05/02/20 23:40 Creatinine 1.88 mg/dL (0.70-1.30) H 05/02/20 23:40 Est GFR (MDRD) Af Amer 47 (>60) L 05/02/20 23:40 Est GFR (MDRD) Non-Af 39 (>60) L 05/02/20 23:40 Glucose 162 mg/dL (65-99) H 05/02/20 23:40 Lactic Acid 2.7 mmol/L (0.4-2.0) H 05/02/20 23:40 Calcium 9.4 mg/dL (8.5-10.1) 05/02/20 23:40 Corrected Calcium TNP 05/02/20 23:40 Total Bilirubin 0.40 mg/dL (0.2-1.0) 05/02/20 23:40 AST 15 Units/L (15-37) 05/02/20 23:40 ALT 19 Units/L (12-78) 05/02/20 23:40 Alkaline Phosphatase 75 Units/L (46-116) 05/02/20 23:40 Creatine Kinase 55 Units/L (39-308) 05/02/20 23:40 CK-MB (CK-2) < 1.0 ng/mL (0-4.0) 05/02/20 23:40 CK/CKMB % Calc 1.8 % (<4) 05/02/20 23:40 Troponin I < 0.02 ng/mL (0-1.5) 05/02/20 23:40 Total Protein 8.0 g/dL (6.4-8.2) 05/02/20 23:40 Albumin 3.6 g/dL (3.4-5.0) 05/02/20 23:40 Globulin 4.4 g/dL (2.5-4.5) 05/02/20 23:40 Albumin/Globulin Ratio 0.8 Ratio (1.1-2.1) L 05/02/20 23:40 Specimen Type Catherized urine 05/03/20 01:30 Urine Color Yellow (YELLOW) 05/03/20 01:30 Urine Appearance Clear (CLEAR) 05/03/20 01:30 Urine pH 5.0 (5.0 - 8.0) 05/03/20 01:30 Ur Specific [place] 1.020 (1.000-1.030) 05/03/20 01:30 Urine Protein 2+ (NEGATIVE) 05/03/20 01:30 Urine Glucose (UA) Negative (NEGATIVE) 05/03/20 01:30 Urine Ketones Negative (NEGATIVE) 05/03/20 01:30 Urine Occult Blood 1+ (NEGATIVE) 05/03/20 01:30 Urine Nitrite Negative (NEGATIVE) 05/03/20 01:30 Urine Bilirubin Negative (NEGATIVE) 05/03/20 01:30 Urine Urobilinogen Normal (NORMAL) 05/03/20 01:30 Ur Leukocyte Esterase Negative (NEGATIVE) 05/03/20 01:30 Urine RBC 0-2 /HPF (0-3) 05/03/20 01:30 Urine WBC 0-2 /HPF (0-5) 05/03/20 01:30 Ur Squamous Epith Cells Rare /HPF (NEGATIVE) 05/03/20 01:30 Urine Bacteria Negative /HPF (NEGATIVE) 05/03/20 01:30 Hyaline Casts Many /LPF (NEGATIVE) 05/03/20 01:30 Urine Mucus Few /HPF (NEGATIVE) 05/03/20 01:30 Ur Culture Indicated? No/not indicated 05/03/20 01:30 Urine Opiates Screen Negative (NEG=<300) 05/03/20 01:30 Urine Methadone Screen Negative (NEG=<300) 05/03/20 01:30 Ur Barbiturates Screen Negative (NEG=<200) 05/03/20 01:30 Ur Phencyclidine Scrn Negative (NEG=<25) 05/03/20 01:30 Ur Amphetamines Screen Negative (NEG=<1000) 05/03/20 01:30 U Benzodiazepines Scrn Negative (NEG=<200) 05/03/20 01:30 Urine Cocaine Screen Negative (NEG=<300) 05/03/20 01:30 U Marijuana (THC) Screen Positive (NEG=<50) A 05/03/20 01:30 XRAY XRAY Interpreted by: Radiologist (REPORT NOTED AND DISCUSSED WITH PATIENTS SISTER.) and Self EKG Rate: 68 [place]: Normal Rhythm: NSR Block: None Hypertrophy: None ST: Nonsp <Apolonia Lucas - Last Filed: 05/03/20 14:05> Labs Reviewed Laboratory: WBC 9.4 X10^3/uL (3.6-10.0) 05/02/20 23:40 RBC 4.59 X10^6/uL (4.7-6.0) L 05/02/20 23:40 Hgb 14.5 g/dL (13.5-18.0) 05/02/20 23:40 Hct 43.6 % (42.0-54.0) 05/02/20 23:40 MCV 94.8 fL (80.0-100.0) 05/02/20 23:40 MCH 31.6 pg (27.0-34.0) 05/02/20 23:40 MCHC 33.3 g/dL (33.0-35.0) 05/02/20 23:40 RDW 14.9 % (11.6-16.5) 05/02/20 23:40 Plt Count 184 X10^3/uL (150.0-450.0) 05/02/20 23:40 MPV 8.0 fL (7.4-11.0) 05/02/20 23:40 Neut % (Auto) 88.5 % (42.0-75.0) H 05/02/20 23:40 Lymph % (Auto) 7.4 % (21.0-51.0) L 05/02/20 23:40 [place] % (Auto) 3.6 % (0.0-13.0) 05/02/20 23:40 Eos % (Auto) 0.1 % (0.9-2.9) L 05/02/20 23:40 Baso % (Auto) 0.4 % (0.2-1.0) 05/02/20 23:40 Neut # (Auto) 8.3 x10^3/uL (2.2-4.8) H 05/02/20 23:40 Lymph # (Auto) 0.7 X10^3/uL (1.3-2.9) L 05/02/20 23:40 [place] # (Auto) 0.3 x10^3/uL (0.3-0.8) 05/02/20 23:40 Eos # (Auto) 0.0 x10^3/uL (0.0-0.2) 05/02/20 23:40 Baso # (Auto) 0.0 X10^3/uL (0.0-0.1) 05/02/20 23:40 Absolute Nucleated RBC 0.0 /100WBC 05/02/20 23:40 Sodium 142 mmol/L (136-145) 05/02/20 23:40 Corrected Sodium 143 mmol/L (136-145) 05/02/20 23:40 Potassium 3.3 mmol/L (3.5-5.1) L 05/02/20 23:40 Chloride 103 mmol/L (98-107) 05/02/20 23:40 Carbon Dioxide 27.8 mmol/L (21-32) 05/02/20 23:40 BUN 16 mg/dL (7-18) 05/02/20 23:40 Creatinine 1.88 mg/dL (0.70-1.30) H 05/02/20 23:40 Est GFR (MDRD) Af Amer 47 (>60) L 05/02/20 23:40 Est GFR (MDRD) Non-Af 39 (>60) L 05/02/20 23:40 Glucose 162 mg/dL (65-99) H 05/02/20 23:40 Lactic Acid 2.7 mmol/L (0.4-2.0) H 05/02/20 23:40 Calcium 9.4 mg/dL (8.5-10.1) 05/02/20 23:40 Corrected Calcium TNP 05/02/20 23:40 Total Bilirubin 0.40 mg/dL (0.2-1.0) 05/02/20 23:40 AST 15 Units/L (15-37) 05/02/20 23:40 ALT 19 Units/L (12-78) 05/02/20 23:40 Alkaline Phosphatase 75 Units/L (46-116) 05/02/20 23:40 Creatine Kinase 55 Units/L (39-308) 05/02/20 23:40 CK-MB (CK-2) < 1.0 ng/mL (0-4.0) 05/02/20 23:40 CK/CKMB % Calc 1.8 % (<4) 05/02/20 23:40 Troponin I < 0.02 ng/mL (0-1.5) 05/02/20 23:40 Total Protein 8.0 g/dL (6.4-8.2) 05/02/20 23:40 Albumin 3.6 g/dL (3.4-5.0) 05/02/20 23:40 Globulin 4.4 g/dL (2.5-4.5) 05/02/20 23:40 Albumin/Globulin Ratio 0.8 Ratio (1.1-2.1) L 05/02/20 23:40 Specimen Type Catherized urine 05/03/20 01:30 Urine Color Yellow (YELLOW) 05/03/20 01:30 Urine Appearance Clear (CLEAR) 05/03/20 01:30 Urine pH 5.0 (5.0 - 8.0) 05/03/20 01:30 Ur Specific [place] 1.020 (1.000-1.030) 05/03/20 01:30 Urine Protein 2+ (NEGATIVE) 05/03/20 01:30 Urine Glucose (UA) Negative (NEGATIVE) 05/03/20 01:30 Urine Ketones Negative (NEGATIVE) 05/03/20 01:30 Urine Occult Blood 1+ (NEGATIVE) 05/03/20 01:30 Urine Nitrite Negative (NEGATIVE) 05/03/20 01:30 Urine Bilirubin Negative (NEGATIVE) 05/03/20 01:30 Urine Urobilinogen Normal (NORMAL) 05/03/20 01:30 Ur Leukocyte Esterase Negative (NEGATIVE) 05/03/20 01:30 Urine RBC 0-2 /HPF (0-3) 05/03/20 01:30 Urine WBC 0-2 /HPF (0-5) 05/03/20 01:30 Ur Squamous Epith Cells Rare /HPF (NEGATIVE) 05/03/20 01:30 Urine Bacteria Negative /HPF (NEGATIVE) 05/03/20 01:30 Hyaline Casts Many /LPF (NEGATIVE) 05/03/20 01:30 Urine Mucus Few /HPF (NEGATIVE) 05/03/20 01:30 Ur Culture Indicated? No/not indicated 05/03/20 01:30 Urine Opiates Screen Negative (NEG=<300) 05/03/20 01:30 Urine Methadone Screen Negative (NEG=<300) 05/03/20 01:30 Ur Barbiturates Screen Negative (NEG=<200) 05/03/20 01:30 Ur Phencyclidine Scrn Negative (NEG=<25) 05/03/20 01:30 Ur Amphetamines Screen Negative (NEG=<1000) 05/03/20 01:30 U Benzodiazepines Scrn Negative (NEG=<200) 05/03/20 01:30 Urine Cocaine Screen Negative (NEG=<300) 05/03/20 01:30 U Marijuana (THC) Screen Positive (NEG=<50) A 05/03/20 01:30 Opioid <KILEY CORDERO - Last Filed: 05/07/20 19:13> Opioid Risk Tool Age (Td box if 16-45): No History of Preadolescent Sexual Abuse: No Total: 0 Total Score Risk Category: Low Risk Copyright: [employer] COOPER predicting aberrant behaviors <Apolonia Lucas - Last Filed: 05/03/20 14:05> Opioid Risk Tool Total: 0 Total Score Risk Category: Low Risk <KILEY CORDERO - Last Filed: 05/07/20 19:13> Diagnosis Discharge Problem: Hypokalemia, Aphagia, Acute CVA (cerebrovascular accident) AMS (altered mental status) Qualifiers: Altered mental status type: unspecified Qualified Code(s): R41.82 - Altered mental status, unspecified Dysphagia Qualifiers: Dysphagia type: unspecified Qualified Code(s): R13.10 - Dysphagia, unspecified Instructions Forms: Precautions for COVID19 Patient Portal Social Distancing
[2020-05-03] MEDS ORDERED: NS 1000 ML 1,000 ML IV SCH (05:34)
[2020-05-03] MEDS ORDERED: NS 1000 ML 1,000 ML ONE (05:38)
[2020-05-03 06:04] VITALS: BP 150/69
[2020-05-03 06:17] LABS: CKMB % 1.2 % (<4); CREATINE KINASE 86 Units/L (39-308); CREATINE KINASE MB < 1.0 ng/mL (0-4.0); TROPONIN I < 0.02 ng/mL (0-1.5)
--- NOTE | 2020-05-03 10:52 | DR.H&P ---
H&P History & Physical for Day of: H&P Date: 05/03/20 Chief Complaint Chief Complaint: brought in by EMS due to passing out at the gas station Allergies Allergies Allergy/AdvReac Type Severity Reaction Status Date / Time No Known Drug Allergies Allergy Verified 02/15/20 09:08 History of Present Illness History of Present Illness: Mr. Thakkar is a 65y/o male with a PMH of DM, Seizures, HTN, HLD who was brought in by EMS last night due to passing out while he was standing in line at the gas station. They checked his FSBG and it was 144. Patient was awake in the ED but now able to follow commands or speak. His vitals were stable. In the ED, CT-head was negative for any acute process, CXR was also normal. Labs: Lactic acid: 2.7 UDS: THC + , COVID (-) Trop x 2 (-) BUN/Cr: 16/1.88 Plan: MRI-brain ordered stat, neuro checks q1h, echo and carotid U/S ordered. Keep NPO. Monitor AM labs and replace electrolytes as needed. Continue hydration with NS. Unclear if patient might have had a seizure and then passed out. Continue telemetry, vitals q4h. On exam, patient is awake, unable to speak. He understands commands and nods, but is not able to follow along to do them. He is able to move all his extremities but not able to move them on command. He has s light left sided facial drooping and left eye deviation. He appears to be in no apparent distress. Patient's sister has been updated about patient's condition. Critical care time spent 31-74 mins for clinical assessment, reviewing imaging/labs, documentation and medical decision making. Past Medical History Past Medical History: Diabetes, Dyslipidemia, Hypertension and Seizures Past Surgical History Surgical History: No History Family History Family Medical History: Diabetes Mellitus, Coronary Artery Disease and Hypertension Social History Does patient currently use any type of tobacco product: No Have you used tobacco products in the last 12 months: No Type of Tobacco Use: None Does any household member use tobacco: No Alcohol Use: None Drug Use: Marijuana Prescription drug monitoring program results: PDMP was not reviewed Medications Home Medications: No Known Drug Allergies Allergy (Verified 02/15/20 09:08) Labs Result Diagrams: 05/02/20 23:40 05/02/20 23:40 Labs: Laboratory WBC 9.4 X10^3/uL (3.6-10.0) 05/02/20 23:40 RBC 4.59 X10^6/uL (4.7-6.0) L 05/02/20 23:40 Hgb 14.5 g/dL (13.5-18.0) 05/02/20 23:40 Hct 43.6 % (42.0-54.0) 05/02/20 23:40 MCV 94.8 fL (80.0-100.0) 05/02/20 23:40 MCH 31.6 pg (27.0-34.0) 05/02/20 23:40 MCHC 33.3 g/dL (33.0-35.0) 05/02/20 23:40 RDW 14.9 % (11.6-16.5) 05/02/20 23:40 Plt Count 184 X10^3/uL (150.0-450.0) 05/02/20 23:40 MPV 8.0 fL (7.4-11.0) 05/02/20 23:40 Neut % (Auto) 88.5 % (42.0-75.0) H 05/02/20 23:40 Lymph % (Auto) 7.4 % (21.0-51.0) L 05/02/20 23:40 [place] % (Auto) 3.6 % (0.0-13.0) 05/02/20 23:40 Eos % (Auto) 0.1 % (0.9-2.9) L 05/02/20 23:40 Baso % (Auto) 0.4 % (0.2-1.0) 05/02/20 23:40 Neut # (Auto) 8.3 x10^3/uL (2.2-4.8) H 05/02/20 23:40 Lymph # (Auto) 0.7 X10^3/uL (1.3-2.9) L 05/02/20 23:40 [place] # (Auto) 0.3 x10^3/uL (0.3-0.8) 05/02/20 23:40 Eos # (Auto) 0.0 x10^3/uL (0.0-0.2) 05/02/20 23:40 Baso # (Auto) 0.0 X10^3/uL (0.0-0.1) 05/02/20 23:40 Absolute Nucleated RBC 0.0 /100WBC 05/02/20 23:40 Sodium 142 mmol/L (136-145) 05/02/20 23:40 Corrected Sodium 143 mmol/L (136-145) 05/02/20 23:40 Potassium 3.3 mmol/L (3.5-5.1) L 05/02/20 23:40 Chloride 103 mmol/L (98-107) 05/02/20 23:40 Carbon Dioxide 27.8 mmol/L (21-32) 05/02/20 23:40 BUN 16 mg/dL (7-18) 05/02/20 23:40 Creatinine 1.88 mg/dL (0.70-1.30) H 05/02/20 23:40 Est GFR (MDRD) Af Amer 47 (>60) L 05/02/20 23:40 Est GFR (MDRD) Non-Af 39 (>60) L 05/02/20 23:40 Glucose 162 mg/dL (65-99) H 05/02/20 23:40 POC Glucose (mg/dL) 98 mg/dL (65-99) 05/03/20 05:46 Lactic Acid 2.7 mmol/L (0.4-2.0) H 05/02/20 23:40 Calcium 9.4 mg/dL (8.5-10.1) 05/02/20 23:40 Corrected Calcium TNP 05/02/20 23:40 Total Bilirubin 0.40 mg/dL (0.2-1.0) 05/02/20 23:40 AST 15 Units/L (15-37) 05/02/20 23:40 ALT 19 Units/L (12-78) 05/02/20 23:40 Alkaline Phosphatase 75 Units/L (46-116) 05/02/20 23:40 Creatine Kinase 86 Units/L (39-308) 05/03/20 05:45 CK-MB (CK-2) < 1.0 ng/mL (0-4.0) 05/03/20 05:45 CK/CKMB % Calc 1.2 % (<4) 05/03/20 05:45 Troponin I < 0.02 ng/mL (0-1.5) 05/03/20 05:45 Total Protein 8.0 g/dL (6.4-8.2) 05/02/20 23:40 Albumin 3.6 g/dL (3.4-5.0) 05/02/20 23:40 Globulin 4.4 g/dL (2.5-4.5) 05/02/20 23:40 Albumin/Globulin Ratio 0.8 Ratio (1.1-2.1) L 05/02/20 23:40 Specimen Type Catherized urine 05/03/20 01:30 Urine Color Yellow (YELLOW) 05/03/20 01:30 Urine Appearance Clear (CLEAR) 05/03/20 01:30 Urine pH 5.0 (5.0 - 8.0) 05/03/20 01:30 Ur Specific [place] 1.020 (1.000-1.030) 05/03/20 01:30 Urine Protein 2+ (NEGATIVE) 05/03/20 01:30 Urine Glucose (UA) Negative (NEGATIVE) 05/03/20 01:30 Urine Ketones Negative (NEGATIVE) 05/03/20 01:30 Urine Occult Blood 1+ (NEGATIVE) 05/03/20 01:30 Urine Nitrite Negative (NEGATIVE) 05/03/20 01:30 Urine Bilirubin Negative (NEGATIVE) 05/03/20 01:30 Urine Urobilinogen Normal (NORMAL) 05/03/20 01:30 Ur Leukocyte Esterase Negative (NEGATIVE) 05/03/20 01:30 Urine RBC 0-2 /HPF (0-3) 05/03/20 01:30 Urine WBC 0-2 /HPF (0-5) 05/03/20 01:30 Ur Squamous Epith Cells Rare /HPF (NEGATIVE) 05/03/20 01:30 Urine Bacteria Negative /HPF (NEGATIVE) 05/03/20 01:30 Hyaline Casts Many /LPF (NEGATIVE) 05/03/20 01:30 Urine Mucus Few /HPF (NEGATIVE) 05/03/20 01:30 Ur Culture Indicated? No/not indicated 05/03/20 01:30 Urine Opiates Screen Negative (NEG=<300) 05/03/20 01:30 Urine Methadone Screen Negative (NEG=<300) 05/03/20 01:30 Ur Barbiturates Screen Negative (NEG=<200) 05/03/20 01:30 Ur Phencyclidine Scrn Negative (NEG=<25) 05/03/20 01:30 Ur Amphetamines Screen Negative (NEG=<1000) 05/03/20 01:30 U Benzodiazepines Scrn Negative (NEG=<200) 05/03/20 01:30 Urine Cocaine Screen Negative (NEG=<300) 05/03/20 01:30 U Marijuana (THC) Screen Positive (NEG=<50) A 05/03/20 01:30 SARS-CoV-2 (PCR) Negative (NEGATIVE) 05/03/20 03:00 Review of Systems Constitutional: Weakness Eyes: No Symptoms Reported ENT: No Symptoms Reported Respiratory: No Symptoms Reported Cardiovascular: No Symptoms Reported Gastrointestinal: No Symptoms Reported Genitourinary: No Symptoms Reported Musculoskeletal: No Symptoms Reported Skin: No Symptoms Reported Neurological: Incoordination, Change in Speech, Confusion and Seizures Physical Exam Vital Signs: Temperature 98.6 F Pulse Rate [Left Brachial] 74 Pulse Rate 71 Respiratory Rate 16 Blood Pressure [Right Arm] 150/69 Blood Pressure 134/72 O2 Sat by Pulse Oximetry 99 Oriented: Unable to test and Other (patient not speaking ) Eyes: Other (left eye deviation noted ) Ear: Normal Nose: Normal Respiratory: Clear Throughout Cardiovascular: Normal Auscultation: Bowel Sounds: Normal Palpation: Normal Tenderness: Normal Skin: Normal Musculoskeletal: Right (able to move all extremities but does not follow commands ) and Left (able to move spontaneously but does not follow commands ) Psychiatric: Normal Mood Description: Flat Affect: Flat Speech Pattern: Aphasic Assessment/Plan (1) Syncope and collapse: Status: Acute (2) AMS (altered mental status): Qualifiers: Altered mental status type: unspecified Qualified Code(s): R41.82 - Altered mental status, unspecified Status: Acute (3) Acute renal failure: Status: Acute (4) Aphasia: Status: Acute (5) Neurological abnormality: Status: Acute Review H&P Reviewed: Yes Patient was examined?: Yes
--- NOTE | 2020-05-03 11:20 | MRI ---
HISTORYDYSPHAGIA, CHANGE IN MENTAL STATUSSTUDYMRI BRAIN W/O IV contrastCOMPARISONCT 05/02/2020TECHNIQUEMultiplanar multi-sequence MRI of the brain was obtained without administration of IV contrast.FINDINGSThe cerebellar tonsils are normally positioned. Pituitary gland is normal in size. [The cerebral ventricles are normal in size.]Large area of restricted diffusion is seen in the left MCA distribution including the head of the left caudate nucleus and left globus pallidus. This has increased T2 signal. Appearance is consistent with recent CVA that is several hours to few days old. [No evidence of intracranial hemorrhage.] Little mass effect is seen with slight sulcal effacement but no midline shift.Flow void in the left M1 segment is not seen beyond its origin suggesting possible left M1 occlusion. 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 Further evaluation with CTA is recommended.Electronically signed by: Betito Wilhelm (May 03, 2020 11:19:58)
[2020-05-03 11:40] LABS: BASOPHILS # (AUTO) 0.1 X10^3/uL (0.0-0.1); BASOPHILS % (AUTO) 0.7 % (0.2-1.0); EOSINOPHILS % (AUTO) 0.4 % (0.9-2.9); HEMATOCRIT 44.2 % (42.0-54.0); HEMOGLOBIN 14.8 g/dL (13.5-18.0); LYMPHOCYTES # (AUTO) 2.1 X10^3/uL (1.3-2.9); LYMPHOCYTES % (AUTO) 22.9 % (21.0-51.0); MEAN CORPUSCULAR HEMOGLOBIN 31.5 pg (27.0-34.0); MEAN CORPUSCULAR HGB CONC 33.4 g/dL (33.0-35.0); MEAN CORPUSCULAR VOLUME 94.3 fL (80.0-100.0); MEAN PLATELET VOLUME 7.3 fL (7.4-11.0); MONOCYTES # (AUTO) 0.8 x10^3/uL (0.3-0.8); MONOCYTES % (AUTO) 8.9 % (0.0-13.0); NEUTROPHILS # (AUTO) 6.1 x10^3/uL (2.2-4.8); NEUTROPHILS % (AUTO) 67.1 % (42.0-75.0); PLATELET COUNT 185 X10^3/uL (150.0-450.0); RED BLOOD COUNT 4.69 X10^6/uL (4.7-6.0); RED CELL DISTRIBUTION WIDTH 14.6 % (11.6-16.5); WHITE BLOOD COUNT 9.1 X10^3/uL (3.6-10.0)
[2020-05-03 11:56] LABS: ALANINE AMINOTRANSFERASE 17 Units/L (12-78); ALBUMIN 3.4 g/dL (3.4-5.0); ALKALINE PHOSPHATASE 77 Units/L (46-116); ASPARTATE AMINO TRANSFERASE 15 Units/L (15-37); BLOOD UREA NITROGEN 12 mg/dL (7-18); CALCIUM 9.1 mg/dL (8.5-10.1); CARBON DIOXIDE 28.6 mmol/L (21-32); CHLORIDE 105 mmol/L (98-107); CHOL/HDL RATIO 6.5 (0.0-5.0); CHOLESTEROL 242 mg/dL (0-200); CREATININE 1.24 mg/dL (0.70-1.30); HDL CHOLESTEROL 37 mg/dL (40-60); LACTIC ACID 1.7 mmol/L (0.4-2.0); SODIUM 144 mmol/L (136-145); TOTAL PROTEIN 7.9 g/dL (6.4-8.2); TRIGLYCERIDES 102 mg/dL (0-150); TROPONIN I < 0.02 ng/mL (0-1.5); eGFR NON BLACK RACES > 60 (>60)
--- NOTE | 2020-05-09 10:35 | DR.SSS ---
SHORT STAY SUMMARY Admission Date Date of Admission: 05/03/20 Discharge Date Discharge Date: 05/03/20 Admission Diagnoses Admission Diagnoses: Acute CVA Aphasia Altered mental status Syncope Type 2 DM HTN Discharge Diagnoses Discharge Diagnoses: Acute left large MCA stroke Altered mental status Aphasia Syncope Type 2 DM HTN HLD Chief Complaint Chief Complaint: syncope, AMS History of Present Illness History of Present Illness: Mr. Thakkar is a 65y/o male with a PMH of DM, HTN, HLD and Seizures presented after collapsing in line while he was at the gas station. EMS was called and patient was brought to the ED. On admission, patient is awake, unable to talk or follow commands. He appeared to be altered. CT-head was negative for bleed or stroke. CXR was negative for acute process. Labs showed acute renal failure and hypokalemia. He received IVF and potassium replacement. Patient was admitted for further CVA management. He was admitted with telemetry and neuro checks. Past Medical History Past Medical History: Diabetes, Dyslipidemia, Hypertension and Seizures Past Surgical History Surgical History: No History Allergies Allergies Allergy/AdvReac Type Severity Reaction Status Date / Time No Known Drug Allergies Allergy Verified 02/15/20 09:08 Medications Home Medications: No Known Drug Allergies Allergy (Verified 02/15/20 09:08) CONTINUE taking the following medications alprazolam 1 mg PO DAILY 05/03/20 [History] hydrocodone-acetaminophen 1 tab PO Q8H PRN 05/03/20 [History] omeprazole 20 mg PO DAILY 05/03/20 [History] Family History Family Medical History: Diabetes Mellitus, Coronary Artery Disease and Hypertension Social History Does patient currently use any type of tobacco product: No Have you used tobacco products in the last 12 months: No Type of Tobacco Use: None Does any household member use tobacco: No Alcohol Use: None Drug Use: Marijuana Review of Systems Constitutional: Weakness Eyes: No Symptoms Reported ENT: No Symptoms Reported Respiratory: No Symptoms Reported Cardiovascular: No Symptoms Reported Gastrointestinal: No Symptoms Reported Genitourinary: No Symptoms Reported Musculoskeletal: No Symptoms Reported Skin: No Symptoms Reported Neurological: Weakness, Incoordination, Change in Speech and Confusion Physical Exam Vital Signs: Last Vital Signs Temp 98.6 F 05/03/20 05:10 Pulse 74 05/03/20 05:25 Resp 16 05/03/20 05:25 BP 150/69 05/03/20 05:10 Pulse Ox 99 05/03/20 05:25 Oriented: Unable to test Eyes: Other (left eye deviation noted ) Ear: Normal Nose: Normal Throat: Other (unable to open mouth ) Respiratory: Clear Throughout Cardiovascular: Normal Auscultation: Bowel Sounds: Normal Palpation: Normal Tenderness: Normal Skin: Normal Musculoskeletal: Motor Deficit (able to move both ext spontaneosuly but not following commands ) Psychiatric: Normal Mood Description: Flat and Suspicious Affect: Flat Speech Pattern: Aphasic Labs Labs: Laboratory Last Values WBC 9.1 X10^3/uL (3.6-10.0) 05/03/20 11:30 RBC 4.69 X10^6/uL (4.7-6.0) L 05/03/20 11:30 Hgb 14.8 g/dL (13.5-18.0) 05/03/20 11:30 Hct 44.2 % (42.0-54.0) 05/03/20 11:30 MCV 94.3 fL (80.0-100.0) 05/03/20 11:30 MCH 31.5 pg (27.0-34.0) 05/03/20 11:30 MCHC 33.4 g/dL (33.0-35.0) 05/03/20 11:30 RDW 14.6 % (11.6-16.5) 05/03/20 11:30 Plt Count 185 X10^3/uL (150.0-450.0) 05/03/20 11:30 MPV 7.3 fL (7.4-11.0) L 05/03/20 11:30 Neut % (Auto) 67.1 % (42.0-75.0) 05/03/20 11:30 Lymph % (Auto) 22.9 % (21.0-51.0) 05/03/20 11:30 [place] % (Auto) 8.9 % (0.0-13.0) 05/03/20 11:30 Eos % (Auto) 0.4 % (0.9-2.9) L 05/03/20 11:30 Baso % (Auto) 0.7 % (0.2-1.0) 05/03/20 11:30 Neut # (Auto) 6.1 x10^3/uL (2.2-4.8) H 05/03/20 11:30 Lymph # (Auto) 2.1 X10^3/uL (1.3-2.9) 05/03/20 11:30 [place] # (Auto) 0.8 x10^3/uL (0.3-0.8) 05/03/20 11:30 Eos # (Auto) 0.0 x10^3/uL (0.0-0.2) 05/03/20 11:30 Baso # (Auto) 0.1 X10^3/uL (0.0-0.1) 05/03/20 11:30 Absolute Nucleated RBC 0.0 /100WBC 05/03/20 11:30 Sodium 144 mmol/L (136-145) 05/03/20 11:30 Corrected Sodium TNP 05/03/20 11:30 Potassium 3.4 mmol/L (3.5-5.1) L 05/03/20 11:30 Chloride 105 mmol/L (98-107) 05/03/20 11:30 Carbon Dioxide 28.6 mmol/L (21-32) 05/03/20 11:30 BUN 12 mg/dL (7-18) 05/03/20 11:30 Creatinine 1.24 mg/dL (0.70-1.30) 05/03/20 11:30 Est GFR (MDRD) Af Amer > 60 (>60) 05/03/20 11:30 Est GFR (MDRD) Non-Af > 60 (>60) 05/03/20 11:30 Glucose 95 mg/dL (65-99) 05/03/20 11:30 POC Glucose (mg/dL) 81 mg/dL (65-99) 05/03/20 12:28 Lactic Acid 1.7 mmol/L (0.4-2.0) 05/03/20 11:30 Calcium 9.1 mg/dL (8.5-10.1) 05/03/20 11:30 Corrected Calcium TNP 05/03/20 11:30 Magnesium 2.0 mg/dL (1.7-2.9) 05/03/20 11:30 Total Bilirubin 0.50 mg/dL (0.2-1.0) 05/03/20 11:30 AST 15 Units/L (15-37) 05/03/20 11:30 ALT 17 Units/L (12-78) 05/03/20 11:30 Alkaline Phosphatase 77 Units/L (46-116) 05/03/20 11:30 Creatine Kinase 86 Units/L (39-308) 05/03/20 05:45 CK-MB (CK-2) < 1.0 ng/mL (0-4.0) 05/03/20 05:45 CK/CKMB % Calc 1.2 % (<4) 05/03/20 05:45 Troponin I < 0.02 ng/mL (0-1.5) 05/03/20 11:30 Total Protein 7.9 g/dL (6.4-8.2) 05/03/20 11:30 Albumin 3.4 g/dL (3.4-5.0) 05/03/20 11:30 Globulin 4.5 g/dL (2.5-4.5) 05/03/20 11:30 Albumin/Globulin Ratio 0.8 Ratio (1.1-2.1) L 05/03/20 11:30 Triglycerides 102 mg/dL (0-150) 05/03/20 11:30 Cholesterol 242 mg/dL (0-200) H 05/03/20 11:30 LDL Cholesterol, Calc 185 mg/dL (0-100) H 05/03/20 11:30 HDL Cholesterol 37 mg/dL (40-60) L 05/03/20 11:30 Cholesterol/HDL Ratio 6.5 (0.0-5.0) H 05/03/20 11:30 Specimen Type Catherized urine 05/03/20 01:30 Urine Color Yellow (YELLOW) 05/03/20 01:30 Urine Appearance Clear (CLEAR) 05/03/20 01:30 Urine pH 5.0 (5.0 - 8.0) 05/03/20 01:30 Ur Specific [place] 1.020 (1.000-1.030) 05/03/20 01:30 Urine Protein 2+ (NEGATIVE) 05/03/20 01:30 Urine Glucose (UA) Negative (NEGATIVE) 05/03/20 01:30 Urine Ketones Negative (NEGATIVE) 05/03/20 01:30 Urine Occult Blood 1+ (NEGATIVE) 05/03/20 01:30 Urine Nitrite Negative (NEGATIVE) 05/03/20 01:30 Urine Bilirubin Negative (NEGATIVE) 05/03/20 01:30 Urine Urobilinogen Normal (NORMAL) 05/03/20 01:30 Ur Leukocyte Esterase Negative (NEGATIVE) 05/03/20 01:30 Urine RBC 0-2 /HPF (0-3) 05/03/20 01:30 Urine WBC 0-2 /HPF (0-5) 05/03/20 01:30 Ur Squamous Epith Cells Rare /HPF (NEGATIVE) 05/03/20 01:30 Urine Bacteria Negative /HPF (NEGATIVE) 05/03/20 01:30 Hyaline Casts Many /LPF (NEGATIVE) 05/03/20 01:30 Urine Mucus Few /HPF (NEGATIVE) 05/03/20 01:30 Ur Culture Indicated? No/not indicated 05/03/20 01:30 Urine Opiates Screen Negative (NEG=<300) 05/03/20 01:30 Urine Methadone Screen Negative (NEG=<300) 05/03/20 01:30 Ur Barbiturates Screen Negative (NEG=<200) 05/03/20 01:30 Ur Phencyclidine Scrn Negative (NEG=<25) 05/03/20 01:30 Ur Amphetamines Screen Negative (NEG=<1000) 05/03/20 01:30 U Benzodiazepines Scrn Negative (NEG=<200) 05/03/20 01:30 Urine Cocaine Screen Negative (NEG=<300) 05/03/20 01:30 U Marijuana (THC) Screen Positive (NEG=<50) A 05/03/20 01:30 SARS-CoV-2 (PCR) Negative (NEGATIVE) 05/03/20 03:00 Assessment/Plan (1) Acute ischemic left MCA stroke: (2) Syncope and collapse: (3) AMS (altered mental status): (4) Acute renal failure: (5) Aphasia: (6) Neurological abnormality: Hospital Course Hospital Course: Patient had MRI-brain in the morning which showed large left MC A stroke. It also showed proximal M1 segment occlusion. On my exam, patient did not seem to have any weakness in ext, he was able to move both upper and lower ext spontaneously. He did not appear to be in any distress. He was able to nod to questions but unable to speak. He was unable to follow directions. He would nod yes but not actually do the action. Due to patient's clinical findings and MRI results, it was decided that patient needs higher level of care in the stroke unit and possible endovascular intervention. This was discussed with patient's sister in detail and she verbalized unders tanding. Repeat labs showed normal renal function. ECHO and carotid U/S were ordered but due to patient being transferred, they were not done. Patient was transferred to [facility]. Patient was stable for transfer. EMS was told to keep the patient head up and also mannitol bag was given incase patient did deteriorate during transfer. Discharge Medications Discharge Medications: Home Medication List alprazolam 1 mg PO DAILY 05/03/20 [History] hydrocodone-acetaminophen 1 tab PO Q8H PRN 05/03/20 [History] omeprazole 20 mg PO DAILY 05/03/20 [History] Prescriptions: Discharge Disposition Discharge Disposition: Transfer to another facility
--- NOTE | 2020-05-09 10:48 | W.DIS.FURT ---
Summary of Discharge Discharge Summary of Date Date of Exam: 05/03/20 Admission Date Date of Admission: 05/03/20 Admission Diagnosis Hospital Course: Mr. Thakkar is a 65y/o male with a PMH of DM, HTN, HLD and Seizures presented after collapsing in line while he was at the gas station. EMS was called and patient was brought to the ED. On admission, patient is awake, unable to talk or follow commands. He appeared to be altered. CT-head was negative for bleed or stroke. CXR was negative for acute process. Labs showed acute renal failure and hypokalemia. He received IVF and potassium replacement. Patient was admitted for further CVA management. He was admitted with telemetry and neuro checks. Patient had MRI-brain in the morning which showed large left MCA stroke. It also showed proximal M1 segment occlusion. On my exam, patient did not seem to have any weakness in ext, he was able to move both upper and lower ext spontaneously. He did not appear to be in any distress. He was able to nod to questions but unable to speak. He was unable to follow directions. He would nod yes but not actually do the action. Due to patient's clinical findings and MRI results, it was decided that patient needs higher level of care in the stroke unit and possible endovascular intervention. This was discussed with patient's sister in detail and she verbalized understanding. Repeat labs showed normal renal function. ECHO and carotid U/S were ordered but due to patient being transferred, they were not done. Patient was transferred to [facility]. Patient was stable for transfer. EMS was told to keep the patient head up and also mannitol bag was given incase patient did deteriorate during transfer. Critical care time spent 31-74 mins in clinical assessment, reviewing labs/imaging, consulting other specialists, medical decision making and documentation. Labs: Laboratory Last Values WBC 9.1 X10^3/uL (3.6-10.0) 05/03/20 11:30 RBC 4.69 X10^6/uL (4.7-6.0) L 05/03/20 11:30 Hgb 14.8 g/dL (13.5-18.0) 05/03/20 11:30 Hct 44.2 % (42.0-54.0) 05/03/20 11:30 MCV 94.3 fL (80.0-100.0) 05/03/20 11:30 MCH 31.5 pg (27.0-34.0) 05/03/20 11:30 MCHC 33.4 g/dL (33.0-35.0) 05/03/20 11:30 RDW 14.6 % (11.6-16.5) 05/03/20 11:30 Plt Count 185 X10^3/uL (150.0-450.0) 05/03/20 11:30 MPV 7.3 fL (7.4-11.0) L 05/03/20 11:30 Neut % (Auto) 67.1 % (42.0-75.0) 05/03/20 11:30 Lymph % (Auto) 22.9 % (21.0-51.0) 05/03/20 11:30 [place] % (Auto) 8.9 % (0.0-13.0) 05/03/20 11:30 Eos % (Auto) 0.4 % (0.9-2.9) L 05/03/20 11:30 Baso % (Auto) 0.7 % (0.2-1.0) 05/03/20 11:30 Neut # (Auto) 6.1 x10^3/uL (2.2-4.8) H 05/03/20 11:30 Lymph # (Auto) 2.1 X10^3/uL (1.3-2.9) 05/03/20 11:30 [place] # (Auto) 0.8 x10^3/uL (0.3-0.8) 05/03/20 11:30 Eos # (Auto) 0.0 x10^3/uL (0.0-0.2) 05/03/20 11:30 Baso # (Auto) 0.1 X10^3/uL (0.0-0.1) 05/03/20 11:30 Absolute Nucleated RBC 0.0 /100WBC 05/03/20 11:30 Sodium 144 mmol/L (136-145) 05/03/20 11:30 Corrected Sodium TNP 05/03/20 11:30 Potassium 3.4 mmol/L (3.5-5.1) L 05/03/20 11:30 Chloride 105 mmol/L (98-107) 05/03/20 11:30 Carbon Dioxide 28.6 mmol/L (21-32) 05/03/20 11:30 BUN 12 mg/dL (7-18) 05/03/20 11:30 Creatinine 1.24 mg/dL (0.70-1.30) 05/03/20 11:30 Est GFR (MDRD) Af Amer > 60 (>60) 05/03/20 11:30 Est GFR (MDRD) Non-Af > 60 (>60) 05/03/20 11:30 Glucose 95 mg/dL (65-99) 05/03/20 11:30 POC Glucose (mg/dL) 81 mg/dL (65-99) 05/03/20 12:28 Lactic Acid 1.7 mmol/L (0.4-2.0) 05/03/20 11:30 Calcium 9.1 mg/dL (8.5-10.1) 05/03/20 11:30 Corrected Calcium TNP 05/03/20 11:30 Magnesium 2.0 mg/dL (1.7-2.9) 05/03/20 11:30 Total Bilirubin 0.50 mg/dL (0.2-1.0) 05/03/20 11:30 AST 15 Units/L (15-37) 05/03/20 11:30 ALT 17 Units/L (12-78) 05/03/20 11:30 Alkaline Phosphatase 77 Units/L (46-116) 05/03/20 11:30 Creatine Kinase 86 Units/L (39-308) 05/03/20 05:45 CK-MB (CK-2) < 1.0 ng/mL (0-4.0) 05/03/20 05:45 CK/CKMB % Calc 1.2 % (<4) 05/03/20 05:45 Troponin I < 0.02 ng/mL (0-1.5) 05/03/20 11:30 Total Protein 7.9 g/dL (6.4-8.2) 05/03/20 11:30 Albumin 3.4 g/dL (3.4-5.0) 05/03/20 11:30 Globulin 4.5 g/dL (2.5-4.5) 05/03/20 11:30 Albumin/Globulin Ratio 0.8 Ratio (1.1-2.1) L 05/03/20 11:30 Triglycerides 102 mg/dL (0-150) 05/03/20 11:30 Cholesterol 242 mg/dL (0-200) H 05/03/20 11:30 LDL Cholesterol, Calc 185 mg/dL (0-100) H 05/03/20 11:30 HDL Cholesterol 37 mg/dL (40-60) L 05/03/20 11:30 Cholesterol/HDL Ratio 6.5 (0.0-5.0) H 05/03/20 11:30 Specimen Type Catherized urine 05/03/20 01:30 Urine Color Yellow (YELLOW) 05/03/20 01:30 Urine Appearance Clear (CLEAR) 05/03/20 01:30 Urine pH 5.0 (5.0 - 8.0) 05/03/20 01:30 Ur Specific [place] 1.020 (1.000-1.030) 05/03/20 01:30 Urine Protein 2+ (NEGATIVE) 05/03/20 01:30 Urine Glucose (UA) Negative (NEGATIVE) 05/03/20 01:30 Urine Ketones Negative (NEGATIVE) 05/03/20 01:30 Urine Occult Blood 1+ (NEGATIVE) 05/03/20 01:30 Urine Nitrite Negative (NEGATIVE) 05/03/20 01:30 Urine Bilirubin Negative (NEGATIVE) 05/03/20 01:30 Urine Urobilinogen Normal (NORMAL) 05/03/20 01:30 Ur Leukocyte Esterase Negative (NEGATIVE) 05/03/20 01:30 Urine RBC 0-2 /HPF (0-3) 05/03/20 01:30 Urine WBC 0-2 /HPF (0-5) 05/03/20 01:30 Ur Squamous Epith Cells Rare /HPF (NEGATIVE) 05/03/20 01:30 Urine Bacteria Negative /HPF (NEGATIVE) 05/03/20 01:30 Hyaline Casts Many /LPF (NEGATIVE) 05/03/20 01:30 Urine Mucus Few /HPF (NEGATIVE) 05/03/20 01:30 Ur Culture Indicated? No/not indicated 05/03/20 01:30 Urine Opiates Screen Negative (NEG=<300) 05/03/20 01:30 Urine Methadone Screen Negative (NEG=<300) 05/03/20 01:30 Ur Barbiturates Screen Negative (NEG=<200) 05/03/20 01:30 Ur Phencyclidine Scrn Negative (NEG=<25) 05/03/20 01:30 Ur Amphetamines Screen Negative (NEG=<1000) 05/03/20 01:30 U Benzodiazepines Scrn Negative (NEG=<200) 05/03/20 01:30 Urine Cocaine Screen Negative (NEG=<300) 05/03/20 01:30 U Marijuana (THC) Screen Positive (NEG=<50) A 05/03/20 01:30 SARS-CoV-2 (PCR) Negative (NEGATIVE) 05/03/20 03:00 Reason For Visit: DYSPHAGIA, HYPOKALEMIA Discharge Date Discharge Date: 05/03/20 Discharge Diagnosis All Active Problems (Updated 05/09/20 @ 10:47 by Apolonia Lucas) Acute ischemic left MCA stroke (Acute) Neurological abnormality (Acute) Aphasia (Acute) Acute renal failure (Acute) Syncope and collapse (Acute) Hypokalemia (Acute) Neuropathy (Chronic) Arthritis (Chronic) Lower back pain (Chronic) Hypertension (Acute) AMS (altered mental status) (Acute) Dysphagia (Acute) Hypokalemia (Acute) Aphagia (Acute) Acute CVA (cerebrovascular accident) (Acute) Plan of Treatment: Continue with present treatment and follow up plan. Pt is to keep follow up appointment as instructed and take medications as ordered. Discharge Medications Discharge Medications: No Known Drug Allergies Allergy (Verified 02/15/20 09:08) CONTINUE taking the following medications alprazolam 1 mg PO DAILY 05/03/20 [History] hydrocodone-acetaminophen 1 tab PO Q8H PRN 05/03/20 [History] omeprazole 20 mg PO DAILY 05/03/20 [History] Discharge Disposition Discharge Disposition: Transfer to the [facility] Discharge Condition: Stable
== END 2020-05-03 14:15 | disposition short-term general hospital (02) | DRG 65 ==
LOC: ER 22:53 → MED/SURG 22:53 → OBSVTOIN 05-03 02:38 → MED/SURG 05-03 05:20
PROVIDERS: ADMIT Internal Medicine; ATTEND Internal Medicine
DX: E87.6 Hypokalemia; R94.31 Abnormal electrocardiogram [ECG] [EKG]; I69.320 Aphasia following cerebral infarction; R55 Syncope and collapse; R41.82 Altered mental status, unspecified; R26.89 Other abnormalities of gait and mobility; Z20.828 Contact with and (suspected) exposure to other viral communicable diseases; I10 Essential (primary) hypertension; R29.818 Other symptoms and signs involving the nervous system; I63.542 Cerebral infarction due to unspecified occlusion or stenosis of left cerebellar artery; N17.8 Other acute kidney failure; I69.391 Dysphagia following cerebral infarction

== ENCOUNTER 2020-12-17 12:27 | Observation (INO) ==
--- NOTE | 2020-12-17 12:59 | CT ---
HISTORYconfusion, amsSTUDYBRAIN W/O CONCOMPARISONMRI brain 05/03/2020TECHNIQUEMultiple CT axial images of the head were obtained without IV contrast. Coronal and sagittal images were reconstructed. Dose reduction techniques included Automated Exposure Control (AEC) and adjustment of mA and kV.FINDINGSThere has been a usual evolution of the previously identified large left MCA territory infarct. A large area of encephalomalacia is present now.Other bennett and white matter have normal differentiation. No mass, shift, or hemorrhage.Cerebellar tonsils are at an appropriate level. No fluid in the sinuses or mucosal thickening to suggest sinusitis. There is no mastoid effusion.IMPRESSION1. No acute findingElectronically signed by: Chavo Peralta (December 17, 2020 12:56:20)
--- NOTE | 2020-12-17 13:50 | DR.GENAD ---
HPI Time Seen Time Seen by Provider: 12/17/20 13:47 PCP Primary Care Physician: LILLIAN HPI Comment HPI Comment: Patient with h/o recent stroke complained to his family about feeling numb from his head to his toes on the right side. Patient has a speech i mpairment due to previous stroke that patient and family note has worsened. Patient feels that his right side is a little weaker as well. Complaint/Symptoms Chief Complaint:: PT. STATES HE FEELS DIFFERENT ON THE RIGHT SIDE OF HIS BODY. PT. HAD A STROKE IN APRIL 2020. COVID-19 Coronavirus risk:travel/contact w/high risk person: No Has patient experienced Coronavirus symptoms: No Source History Provided: Patient Mode of Arrival Mode of Arrival: Ambulatory Timing Onset of Chief Complaint: 12/17/20 PMH PMH Past Medical History: Yes Past Medical History: CVA, Diabetes, Dyslipidemia, Hypertension and Seizures Past Surgical History: Yes Surgical History: Other Past Surgical History Comment: HOLE REPAIRED TO HEART Family History History of Family Medical Conditions: Yes Family Medical History: Diabetes Mellitus, Coronary Artery Disease and Hypertension Social History Does patient currently use any type of tobacco product: No Have you used tobacco products in the last 12 months: No Type of Tobacco Use: None Does any household member use tobacco: No Alcohol Use: None Do you use any recreational Drugs:: No Lives With: Alone Lives Where: Home Travel Risk Coronavirus risk:travel/contact w/high risk person: No Has patient experienced Coronavirus symptoms: No Infectious screening In the last 2 months have you had wt loss of >10#?: NO Have you had fever, night sweats or hemotysis?: No Have you traveled outside the country in the last 6 months?: No Isolation: Standard ROS Review of Systems Constitutional: See HPI Neurological: See HPI All Other Systems: Reviewed and Negative PE Vital Signs Vitals: Temperature 97.4 F Pulse Rate 72 Respiratory Rate 17 Blood Pressure [Right Arm] 150/69 Blood Pressure 89/50 O2 Sat by Pulse Oximetry 99 General Limitations: No Limitations General Appearance: Alert and In No Apparent Distress Head Head Exam: Normal Inspection, Atraumatic and Normocephalic Eyes Eye exam: Normal Appearance and EOMI ENT ENT Exam: Normal Exam Neck Neck Exam: Normal Inspection and Full ROM Chest Chest Inspection: Normal Inspection and Symmetric Chest Wall Rise Respiratory Respiratory Exam: Normal Lung Sounds Bilat Respiratory Exam: Bilateral: Clear to Auscultation Cardiovascular Cardiovascular Exam: Regular Rate, Normal Rhythm and Normal Heart Sounds Abdominal Exam Abdominal Exam: Normal Inspection, Normal Bowel Sounds and Soft Extremities Extremities Exam: Normal Inspection Neurologic Neurological Exam: Alert, Oriented X3 and Motor Sensory Deficit (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 No drift. ) Psychiatric Psychiatric Exam: Normal Affect and Normal Mood Skin Skin Exam: Warm, Dry and Intact COURSE Reevaluation 1st: Unchanged Consultation Call Returned: 16:22 Consultation Comments: Spoke with Dr. Harris who accepts patient for admission. ROR Labs Reviewed Laboratory Results Reviewed?: Yes Result Diagrams: 12/17/20 14:02 12/17/20 14:02 Laboratory: WBC 7.6 X10^3/uL (3.6-10.0) 12/17/20 14:02 RBC 4.81 X10^6/uL (4.7-6.0) 12/17/20 14:02 Hgb 14.7 g/dL (13.5-18.0) 12/17/20 14:02 Hct 44.0 % (42.0-54.0) 12/17/20 14:02 MCV 91.5 fL (80.0-100.0) 12/17/20 14:02 MCH 30.6 pg (27.0-34.0) 12/17/20 14:02 MCHC 33.5 g/dL (33.0-35.0) 12/17/20 14:02 RDW 15.6 % (11.6-16.5) 12/17/20 14:02 Plt Count 59 X10^3/uL (150.0-450.0) L 12/17/20 14:02 MPV 8.3 fL (7.4-11.0) 12/17/20 14:02 Neut % (Auto) 56.3 % (42.0-75.0) 12/17/20 14:02 Lymph % (Auto) 31.9 % (21.0-51.0) 12/17/20 14:02 [place] % (Auto) 10.2 % (0.0-13.0) 12/17/20 14:02 Eos % (Auto) 1.2 % (0.9-2.9) 12/17/20 14:02 Baso % (Auto) 0.4 % (0.2-1.0) 12/17/20 14:02 Neut # (Auto) 4.3 x10^3/uL (2.2-4.8) 12/17/20 14:02 Lymph # (Auto) 2.4 X10^3/uL (1.3-2.9) 12/17/20 14:02 [place] # (Auto) 0.8 x10^3/uL (0.3-0.8) 12/17/20 14:02 Eos # (Auto) 0.1 x10^3/uL (0.0-0.2) 12/17/20 14:02 Baso # (Auto) 0.0 X10^3/uL (0.0-0.1) 12/17/20 14:02 Absolute Nucleated RBC 0.0 /100WBC 12/17/20 14:02 Sodium 141 mmol/L (136-145) 12/17/20 14:02 Corrected Sodium TNP 12/17/20 14:02 Potassium 3.8 mmol/L (3.5-5.1) 12/17/20 14:02 Chloride 101 mmol/L (98-107) 12/17/20 14:02 Carbon Dioxide 31.8 mmol/L (21-32) 12/17/20 14:02 BUN 21 mg/dL (7-18) H 12/17/20 14:02 Creatinine 2.14 mg/dL (0.70-1.30) H 12/17/20 14:02 Est GFR (MDRD) Af Amer 40 (>60) L 12/17/20 14:02 Est GFR (MDRD) Non-Af 33 (>60) L 12/17/20 14:02 Glucose 99 mg/dL (65-99) 12/17/20 14:02 Calcium 9.3 mg/dL (8.5-10.1) 12/17/20 14:02 Corrected Calcium TNP 12/17/20 14:02 Total Bilirubin 0.70 mg/dL (0.2-1.0) 12/17/20 14:02 AST 17 Units/L (15-37) 12/17/20 14:02 ALT 26 Units/L (12-78) 12/17/20 14:02 Alkaline Phosphatase 77 Units/L (46-116) 12/17/20 14:02 Creatine Kinase 55 Units/L (39-308) 12/17/20 14:02 CK-MB (CK-2) < 1.0 ng/mL (0-4.0) 12/17/20 14:02 CK/CKMB % Calc 1.8 % (<4) 12/17/20 14:02 Troponin I < 0.02 ng/mL (0-1.5) 12/17/20 14:02 Total Protein 8.4 g/dL (6.4-8.2) H 12/17/20 14:02 Albumin 4.1 g/dL (3.4-5.0) 12/17/20 14:02 Globulin 4.3 g/dL (2.5-4.5) 12/17/20 14:02 Albumin/Globulin Ratio 1.0 Ratio (1.1-2.1) L 12/17/20 14:02 XRAY X-ray Results: HISTORY WEAKNESS STUDY CHEST, PA/LAT ADULT COMPARISON 05/02/2020 FINDINGS The lungs are clear. No pneumothorax or significant effusion. Heart size is normal. Vascular calcifications are present compatible with atherosclerosis. Bones are unremarkable. IMPRESSION 1. No significant abnormality Electronically signed by: Chavo Peralta (December 17, 2020 14:08:16) HISTORY confusion, ams STUDY BRAIN W/O CON COMPARISON MRI brain 05/03/[address] axial images of the head were obtained without IV contrast. Coronal and sagittal images were reconstructed. Dose reduction techniques included Automated Exposure Control (AEC) and adjustment of mA and kV. FINDINGS There has been a usual evolution of the previously identified large left MCA ter ritory infarct. A large area of encephalomalacia is present now. Other bennett and white matter have normal differentiation. No mass, shift, or hemorrhage.Cerebellar tonsils are at an appropriate level. No fluid in the sinuses or mucosal thickening to suggest sinusitis. There is no mastoid effusion. IMPRESSION 1. No acute finding Electronically signed by: Chavo Peralta (December 17, 2020 12:56:20) Opioid Opioid Risk Tool Age (Td box if 16-45): No History of Preadolescent Sexual Abuse: No Total: 0 Total Score Risk Category: Low Risk Copyright: [employer]OPER predicting aberrant behaviors Diagnosis Discharge Problem: Brain TIA Acute renal failure Qualifiers: Acute renal failure type: unspecified Qualified Code(s): N17.9 - Acute kidney failure, unspecified
--- NOTE | 2020-12-17 14:10 | RAD ---
HISTORYWEAKNESSSTUDPETE, PA/LAT [id number] lungs are clear. No pneumothorax or significant effusion.Heart size is normal. Vascular calcifications are present compatible with atherosclerosis.Bones are unremarkable.IMPRESSION1. No significant abnormalityElectronically signed by: Chavo Peralta (December 17, 2020 14:08:16)
[2020-12-17 14:18] LABS: BASOPHILS % (AUTO) 0.4 % (0.2-1.0); EOSINOPHILS # (AUTO) 0.1 x10^3/uL (0.0-0.2); EOSINOPHILS % (AUTO) 1.2 % (0.9-2.9); HEMOGLOBIN 14.7 g/dL (13.5-18.0); LYMPHOCYTES # (AUTO) 2.4 X10^3/uL (1.3-2.9); LYMPHOCYTES % (AUTO) 31.9 % (21.0-51.0); MEAN CORPUSCULAR HEMOGLOBIN 30.6 pg (27.0-34.0); MEAN CORPUSCULAR HGB CONC 33.5 g/dL (33.0-35.0); MEAN CORPUSCULAR VOLUME 91.5 fL (80.0-100.0); MEAN PLATELET VOLUME 8.3 fL (7.4-11.0); MONOCYTES # (AUTO) 0.8 x10^3/uL (0.3-0.8); MONOCYTES % (AUTO) 10.2 % (0.0-13.0); NEUTROPHILS # (AUTO) 4.3 x10^3/uL (2.2-4.8); NEUTROPHILS % (AUTO) 56.3 % (42.0-75.0); PLATELET COUNT 59 X10^3/uL (150.0-450.0); RED BLOOD COUNT 4.81 X10^6/uL (4.7-6.0); RED CELL DISTRIBUTION WIDTH 15.6 % (11.6-16.5); WHITE BLOOD COUNT 7.6 X10^3/uL (3.6-10.0)
[2020-12-17 14:54] LABS: ALANINE AMINOTRANSFERASE 26 Units/L (12-78); ALBUMIN 4.1 g/dL (3.4-5.0); ALKALINE PHOSPHATASE 77 Units/L (46-116); BLOOD UREA NITROGEN 21 mg/dL (7-18); CALCIUM 9.3 mg/dL (8.5-10.1); CARBON DIOXIDE 31.8 mmol/L (21-32); CHLORIDE 101 mmol/L (98-107); CREATINE KINASE MB < 1.0 ng/mL (0-4.0); CREATININE 2.14 mg/dL (0.70-1.30); TOTAL PROTEIN 8.4 g/dL (6.4-8.2); TROPONIN I < 0.02 ng/mL (0-1.5); eGFR NON BLACK RACES 33 (>60)
[2020-12-17 15:08] LABS: ASPARTATE AMINO TRANSFERASE 17 Units/L (15-37); CKMB % 1.8 % (<4); CREATINE KINASE 55 Units/L (39-308); SODIUM 141 mmol/L (136-145)
[2020-12-17] MEDS ORDERED: NS 1000 ML 1,000 ML IV ONE (15:53)
[2020-12-17] MEDS ORDERED: NS 1000 ML 1,000 ML ONE (17:18)
--- NOTE | 2020-12-17 17:22 | MRI ---
HISTORYTIA right-sided weaknessSTUDYBRAIN W/O CONCOMPARISONHead CT 12/17/2020TECHNIQUEMultiplanar multisequence MRI of the brain was obtained without contrast using standard departmental protocol.FINDINGSDiffusion sequences show no abnormal signal. No evidence for acute ischemia.A large area of encephalomalacia is present from an old left MCA territory infarct.Only minimal age related changes are seen. Otherwise bennett and white matter have normal differentiation. No mass, shift, or hemorrhage.Normal signal flow void in the central vessels. No significant abnormality on susceptibility sequences.No fluid in the sinuses or mucosal thickening to suggest sinusitis. There is no mastoid effusion.IMPRESSION1. No acute findings2. Old left MCA territory infarctElectronically signed by: Chavo Peralta (December 17, 2020 17:20:52)
--- NOTE | 2020-12-17 17:28 | MRI ---
HISTORYTIA right-sided weaknessSTUDYMRA HEAD W/O CONCOMPARISONHead CT same dayTECHNIQUE3-D [id number] MR imaging of the head was performed using standard department protocol.Stenoses are measured using NASCET criteria.FINDINGSThe posterior circulation is small. This is normal variant anatomy.Left vertebral artery is dominant. The basilar artery is small and mostly supplies the superior cerebellar arteries.There is origin of the left and right posterior cerebral artery, normal variant anatomy.Distal cervical segment internal carotid arteries are patent. No significant carotid siphon occlusion.Anterior cerebral and middle cerebral arteries are patent. No large vessel occlusion. No aneurysm or arteriovenous malformation.There is a paucity of vessels in the left temporal lobe but this is chronic and in the region of prior old infarction. Mild contour irregularity seen in the M1 segment of the right middle cerebral artery; this is likely from atherosclerosis but I see no significant stenosis.IMPRESSION1. Mild right M1 segment atherosclerosis2. No significant occlusive diseaseElectronically signed by: Chavo Peralta (December 17, 2020 17:25:43)
[2020-12-17 17:42] LABS: CKMB % 1.1 % (<4); CREATINE KINASE 92 Units/L (39-308); CREATINE KINASE MB < 1.0 ng/mL (0-4.0); TROPONIN I < 0.02 ng/mL (0-1.5)
[2020-12-17 17:53] LABS: BILIRUBIN,URINE NEGATIVE (NEGATIVE); BLOOD/HEMOGLOBIN,URINE NEGATIVE (NEGATIVE); GLUCOSE, URINE 1+ (NEGATIVE); KETONES,URINE NEGATIVE (NEGATIVE); LEUKOCYTE ESTERASE ,URINE NEGATIVE (NEGATIVE); NITRITES,URINE NEGATIVE (NEGATIVE); PROTEIN,URINE NEGATIVE (NEGATIVE); UROBILINOGEN,URINE NORMAL (NORMAL)
[2020-12-17 18:01] LABS: APPEARANCE,URINE CLEAR (CLEAR); COLOR,URINE STRAW (YELLOW)
[2020-12-17] MEDS ORDERED: VENTOLIN or PROAIR HFA INH PRN (21:40)
[2020-12-17] MEDS ORDERED: LOSARTAN POTASSIUM 100 MG PO SCH (21:40)
[2020-12-17] MEDS: NS 1000 ML 1,000 ML IV SCH (21:45)
[2020-12-17] MEDS ORDERED: COZAAR PO SCH (22:00)
[2020-12-17 22:51] LABS: CKMB % 2.4 % (<4); CREATINE KINASE 42 Units/L (39-308); CREATINE KINASE MB < 1.0 ng/mL (0-4.0); TROPONIN I < 0.02 ng/mL (0-1.5)
[2020-12-18] MEDS: NS 1000 ML 1,000 ML IV SCH ×2 (01:38→08:39)
[2020-12-18 05:26] LABS: BASOPHILS % (AUTO) 0.6 % (0.2-1.0); EOSINOPHILS # (AUTO) 0.1 x10^3/uL (0.0-0.2); EOSINOPHILS % (AUTO) 1.7 % (0.9-2.9); HEMATOCRIT 35.7 % (42.0-54.0); LYMPHOCYTES # (AUTO) 2.2 X10^3/uL (1.3-2.9); LYMPHOCYTES % (AUTO) 44.2 % (21.0-51.0); MEAN CORPUSCULAR HEMOGLOBIN 30.5 pg (27.0-34.0); MEAN CORPUSCULAR HGB CONC 33.9 g/dL (33.0-35.0); MEAN CORPUSCULAR VOLUME 90.2 fL (80.0-100.0); MEAN PLATELET VOLUME 8.4 fL (7.4-11.0); MONOCYTES # (AUTO) 0.5 x10^3/uL (0.3-0.8); MONOCYTES % (AUTO) 9.4 % (0.0-13.0); NEUTROPHILS # (AUTO) 2.2 x10^3/uL (2.2-4.8); NEUTROPHILS % (AUTO) 44.1 % (42.0-75.0); PLATELET COUNT 221 X10^3/uL (150.0-450.0); RED BLOOD COUNT 3.96 X10^6/uL (4.7-6.0); RED CELL DISTRIBUTION WIDTH 15.3 % (11.6-16.5); WHITE BLOOD COUNT 4.9 X10^3/uL (3.6-10.0)
[2020-12-18 05:48] LABS: ALANINE AMINOTRANSFERASE 21 Units/L (12-78); ALBUMIN 3.3 g/dL (3.4-5.0); ALKALINE PHOSPHATASE 62 Units/L (46-116); ASPARTATE AMINO TRANSFERASE 15 Units/L (15-37); BLOOD UREA NITROGEN 13 mg/dL (7-18); CALCIUM 8.5 mg/dL (8.5-10.1); CARBON DIOXIDE 29.4 mmol/L (21-32); CHLORIDE 106 mmol/L (98-107); CKMB % 2.5 % (<4); COR CA(FOR HYPOALB) 9.1 mg/dL (8.5-10.1); CREATINE KINASE 40 Units/L (39-308); CREATINE KINASE MB < 1.0 ng/mL (0-4.0); CREATININE 1.27 mg/dL (0.70-1.30); SODIUM 143 mmol/L (136-145); TOTAL PROTEIN 6.7 g/dL (6.4-8.2); TROPONIN I < 0.02 ng/mL (0-1.5); eGFR NON BLACK RACES > 60 (>60)
[2020-12-18 06:13] LABS: HEMOGLOBIN 12.1 g/dL (13.5-18.0)
[2020-12-18] MEDS ORDERED: KLOR-CON PO PRN (06:15)
[2020-12-18] MEDS ORDERED: POTASSIUM CHL 60 MEQ/NS 0.45% 500 ML IV PRN (06:15)
[2020-12-18] MEDS ORDERED: POTASSIUM CHLORIDE LIQ 20 MEQ UDC PO PRN (06:15)
[2020-12-18] MEDS ORDERED: MICRO K EXTEN CAP 10 MEQ PO PRN (06:15)
[2020-12-18] MEDS ORDERED: K-RIDER 10 MEQ/NS 100 ML 10 MEQ/100 ML BAG IV PRN (06:15)
[2020-12-18] MEDS ORDERED: POTASSIUM CHL 40 MEQ/NS 0.45% 500 ML IV PRN (06:15)
[2020-12-18] MEDS ORDERED: K-DUR TAB 20 MEQ PO PRN (06:15)
[2020-12-18] MEDS: MAGNESIUM SULFATE 1 GRAM/100 mL PREMIX 2 G/200 ML BAG IV SCH ×2 (06:54→08:35)
[2020-12-18 08:06] VITALS: BP 118/73
[2020-12-18] MEDS ORDERED: LOVENOX INJ 40 MG SYR SC SCH (09:00)
[2020-12-18] MEDS ORDERED: HYDROCHLOROTHIAZIDE 12.5 MG PO SCH (09:00)
[2020-12-18] MEDS ORDERED: HYDROCHLOROTHIAZIDE 12.5 MG CAP PO SCH (09:00)
[2020-12-18] MEDS ORDERED: XANAX PO SCH (09:00)
[2020-12-18] MEDS ORDERED: NORVASC TAB 10 MG PO SCH (09:00)
[2020-12-18] MEDS ORDERED: PATIENT'S HOME MEDICATION (Amlodipine Besylate 10 MG Tab) PO SCH (09:00)
[2020-12-18] MEDS ORDERED: ZESTRIL TAB 40 MG PO SCH (09:00)
[2020-12-18] MEDS ORDERED: ASPIRIN PO SCH (09:00)
[2020-12-18 11:59] VITALS: BMI 24.2
== END 2020-12-18 11:55 | disposition home or self-care (01) ==
LOC: MED/SURG 12:27 → ER 12:27 → MED/SURG 20:40
PROVIDERS: ADMIT Obstetrics & Gynecology Obstetrics; ATTEND Obstetrics & Gynecology Obstetrics
DX: E78.2 Mixed hyperlipidemia; I10 Essential (primary) hypertension; E11.65 Type 2 diabetes mellitus with hyperglycemia; N17.8 Other acute kidney failure; Z20.822 Contact with and (suspected) exposure to COVID-19; K21.9 Gastro-esophageal reflux disease without esophagitis; Z79.01 Long term (current) use of anticoagulants; R20.0 Anesthesia of skin; Z86.73 Personal history of transient ischemic attack (TIA), and cerebral infarction without residual deficits; R41.82 Altered mental status, unspecified; G45.8 Other transient cerebral ischemic attacks and related syndromes